=== PATIENT | female | born 1980 ===

== ENCOUNTER 2017-12-08 18:55 | Inpatient (IN) | payer OTHER ==
[2017-12-08 19:18] VITALS: BMI 19.7
[2017-12-08] MEDS ORDERED: Sodium Chloride 0.9% 1,000 ML IV STA ×2 (20:23→22:58)
[2017-12-08] MEDS ORDERED: Morphine 4 MG/ML VIAL ONE ×2 (20:26→21:58)
--- NOTE | 2017-12-08 21:20 | ED PDOC ---
HPI: Back Time Seen by Provider: 12/08/17 19:33 Chief Complaint (Nursing): Back Pain Chief Complaint (Provider): Back Pain History Per: Patient History/Exam Limitations: no limitations Onset/Duration Of Symptoms: Sudden Onset Current Symptoms Are (Timing): Still Present Quality Of Discomfort: "Pain" Exacerbating Factor(s): Movement Additional Complaint(s): 37 year old female presents to the emergency room complaining of a sudden onset of back pain. The patient states that the pain is sharp and began around 11am when she had an episode of vomiting. She reports that the pain radiates down her right buttock and into her right leg. Patient reports that she has not taken anything for relief of the pain. Denies numbness, weakness, bowel/bladder incontinence or retention. Patient further states that she is also experiencing some vaginal spotting which has been ongoing since she had a D&C performed back in October and she is currently being worked up by doctor Nick. she reports that her last evaluation was at [facility] and at that time she was told she may need to have a repeat D&C. Of note: Patient states that she vomited today is ongoing and has been intermittent since the procedure. PMD: Non [facility] Provider, Past Medical History Reviewed: Historical Data, Nursing Documentation, Vital Signs Vital Signs: Last Vital Signs Temp 98.3 F 12/08/17 19:16 Pulse 98 H 12/08/17 19:16 Resp 16 12/08/17 19:16 BP 121/81 12/08/17 19:16 Pulse Ox 100 12/08/17 19:16 - Medical History PMH: Anemia - Surgical History Surgical History: No Surg Hx - Family History Family History: States: Unknown Family Hx - Social History Current smoker - smoking cessation education provided: No Ex-Smoker (has not smoked in the last 12 months): No Alcohol: None Drugs: Denies - Immunization History Hx Tetanus Toxoid Vaccination: No Hx Influenza Vaccination: No Hx Pneumococcal Vaccination: No - Home Medications Home Medications: Ambulatory Orders Medication Instructions Recorded Levonorgestrel-Ethin Estradiol 1 each PO DAILY 12/03/17 [Vienva-28 Tablet] MedroxyPROGESTERone [Provera] 1 tab PO DAILY #10 tab 12/03/17 - Allergies Allergies/Adverse Reactions: Allergies Allergy/AdvReac Type Severity Reaction Status Date / Time iron AdvReac VOMITING Verified 09/02/17 15:59 Review of Systems Gastrointestinal: Positive for: Vomiting Genitourinary Female: Negative for: Incontinence, Vaginal Bleeding (vaginal spotting) Musculoskeletal: Positive for: Back Pain Neurological: Negative for: Weakness, Numbness Physical Exam - Reviewed Nursing Documentation Reviewed: Yes Vital Signs Reviewed: Yes - Physical Exam Appears: Positive for: Uncomfortable, In Acute Distress (moderate painful) Head Exam: Positive for: ATRAUMATIC, NORMOCEPHALIC Skin: Positive for: Warm, Dry Eye Exam: Positive for: EOMI, PERRL ENT: Positive for: Normal ENT Inspection Neck: Positive for: Painless ROM, Supple Cardiovascular/Chest: Positive for: Regular Rate, Rhythm. Negative for: Murmur Respiratory: Positive for: Normal Breath Sounds. Negative for: Respiratory Distress Gastrointestinal/Abdominal: Positive for: Soft. Negative for: Tenderness Back: Positive for: Other (tenderness to palpation right Para spinal lumbar area and right SI joint tenderness to palpation unable to tolerate straight leg testing). Negative for: L CVA Tenderness, R CVA Tenderness Extremity: Positive for: Normal ROM. Negative for: Deformity Neurologic/Psych: Positive for: Alert, Oriented, Other (no saddle anesthesia and 5/5 strength in b/l lower extremities.). Negative for: Motor/Sensory Deficits - Laboratory Results Result Diagrams: 12/08/17 22:16 12/08/17 22:16 - ECG O2 Sat by Pulse Oximetry: 100 (RA) Pulse Ox Interpretation: Normal Medical Decision Making Medical Decision Makin Initial Impression 37 y/o female presenting with acute lumbar radiculopathy Initial plan: * Flexeril 10mg PO * Morphine 2mg IVP * NS 1000mls IV 1000 mls/hr * Toradol 15mg * RAD LS Spine AP/LAT * Reevaluation 2300 Multiple reevaluations and doses of pain medication and patient has minimal improvement and inability to ambulate. [facility] Hospitalist for continued hospitalization for intractable low back pain. Labs c/w mild stable anemia. No emergently significant abnormalities LS spine xray negative for fx/dislocation ---- Documented by Jessie Perry acting as a scribe for Katherin Cortes MD. All medical record entries made by the Scribe were at my direction and personally dictated by me. I have reviewed the chart and agree that the record accurately reflects my personal performance of the history, physical exam, medical decision making, and the department course for this patient. I have also personally directed, reviewed, and agree with the discharge instructions and disposition. Disposition - Clinical Impression Clinical Impression: Low back pain, Intractable pain Counseled Patient/Family Regarding: Studies Performed, Diagnosis - Disposition Disposition Time: 23:00 Condition: FAIR - Pt Status Changed To: Hospital Disposition Of: Observation - POA Present On Arrival: None
[2017-12-08] MEDS ORDERED: Morphine 4 MG/ML VIAL IVP STA (21:56)
[2017-12-08 22:25] LABS: BASO % 0.5 % (0.0-2.0); EOS % 0.5 % (0.0-4.0); HEMOGLOBIN 9.4 g/dL (12.0-16.0); LYMPH # 1.9 K/uL (1.0-4.3); LYMPH % 31.6 % (20.0-40.0); MEAN CELL VOLUME 76.3 fl (81.0-99.0); MEAN CORPUSCULAR HEMOGLOBIN 23.7 pg (27.0-31.0); MEAN PLATELET VOLUME 10.9 fl (7.2-11.7); MONO # 0.6 K/uL (0.0-0.8); MONO % 9.6 % (0.0-10.0); NEUT # 3.5 K/uL (1.8-7.0); NEUT % 57.8 % (50.0-75.0); NRBC % 0.1 % (0.0-0.0); RBC 3.98 Mil/uL (3.80-5.20); RED CELL DISTRIBUTION WIDTH 15.2 % (11.5-14.5)
[2017-12-08 22:36] LABS: ALB/GLOB RATIO 1.1 (1.0-2.1); ALT/SGPT 31 U/L (9-52); AST/SGOT 23 U/L (14-36); BLOOD UREA NITROGEN 6 mg/dl (7-17); CALCIUM 9.2 mg/dL (8.4-10.2); GFR AFRICAN-AMERICAN > 60; GFR NON-AFRICAN AMERICAN > 60
[2017-12-08 22:55] LABS: INR 1.1 (0.9-1.2); PARTIAL THROMBOPLASTIN TIME 21.9 Seconds (25.6-37.1); PROTHROMBIN TIME 12.1 Seconds (9.8-13.1)
--- NOTE | 2017-12-08 23:43 | CP.PCM.HP ---
History of Present Illness - History of Present Illness History of Present Illness: CC: intractable back pain HPI: This is a 37 y/o female with MHx significant for recent ectopic surgery (Oct 2017) but otherwise no medical conditions who presents with acute onset back pain which is intractable and significant enough to impede her ability to ambulate. She states pain started acutely around 11 after an episode of vomiting (she has been having intermittent vomiting since procedure above). Pain radiates down right buttock. Denies any bowel/bladder incontinence or retention. She denies any other strain or trauma. Denies attempting to lift any heavy objects. States she is still having some vaginal spotting from her recent D&C. ROS: 14 systems reviewed, negative other than HPI MHx: Anemia SHx: D&C for ectopic surgery Allergies: Cannot tolerate Iron Medications: per med rec Family Hx: No relevant findings Social Hx: Lives with family, no tobacco, no EtOH Present on Admission - Present on Admission Any Indicators Present on Admission: No Past Patient History - Infectious Disease Hx of Infectious Diseases: None - Past Medical History & Family History Past Medical History?: Yes - Past Social History Alcohol: None Drugs: Denies - HEMATOLOGICAL/ONCOLOGICAL Hx Anemia: Yes - GASTROINTESTINAL Hx Gastrointestinal Disorders: Yes (hyperemesis no nausea vomitting x 2 days instructed to eat banana and juice) - GENITOURINARY/GYNECOLOGICAL Hx Genitourinary Disorders: Yes (hx ectopic ) Other/Comment: 11/25/16 ECTOPIC - PSYCHIATRIC Hx Substance Use: No - SURGICAL HISTORY Hx Surgeries: Yes Hx Dilation and Curettage: Yes Other/Comment: right salpingectomy due to ruptured ectopic - ANESTHESIA Hx Anesthesia: Yes Hx Anesthesia Reactions: No Hx Malignant Hyperthermia: No Meds Allergies/Adverse Reactions: Allergies Allergy/AdvReac Type Severity Reaction Status Date / Time iron AdvReac VOMITING Verified 09/02/17 15:59 Physical Exam - Constitutional Appears: No Acute Distress Additional comments: appears uncomfortable from back pain - Head Exam Head Exam: ATRAUMATIC, NORMOCEPHALIC - Eye Exam Eye Exam: EOMI, PERRL - ENT Exam ENT Exam: Mucous Membranes Moist - Neck Exam Neck exam: Positive for: Full Rom - Respiratory Exam Respiratory Exam: Clear to Auscultation Bilateral, NORMAL BREATHING PATTERN - Cardiovascular Exam Cardiovascular Exam: REGULAR RHYTHM, +S1, +S2 - GI/Abdominal Exam GI & Abdominal Exam: Normal Bowel Sounds, Soft - Extremities Exam Additional comments: b/l LE with restricted ROM due to pain; strength is intact and symmetric - Back Exam Back exam: paraspinal tenderness, vertebral tenderness - Neurological Exam Neurological exam: Alert, CN II-XII Intact, Oriented x3 - Psychiatric Exam Psychiatric exam: Normal Affect, Normal Mood - Skin Skin Exam: Dry, Warm Results - Vital Signs Recent Vital Signs: Last Vital Signs Temp 98.6 F 12/08/17 23:37 Pulse 80 12/08/17 23:37 Resp 16 12/08/17 23:37 BP 103/66 12/08/17 23:37 Pulse Ox 100 12/08/17 23:37 - Labs Result Diagrams: 12/08/17 22:16 12/08/17 22:16 Labs: Laboratory Results - last 24 hr 12/08/17 12/08/17 12/08/17 22:16 22:16 22:16 WBC 6.0 RBC 3.98 Hgb 9.4 L Hct 30.4 L MCV 76.3 L MCH 23.7 L MCHC 31.0 L RDW 15.2 H Plt Count 200 MPV 10.9 Neut % (Auto) 57.8 Lymph % (Auto) 31.6 Stevens % (Auto) 9.6 Eos % (Auto) 0.5 Baso % (Auto) 0.5 Neut # (Auto) 3.5 Lymph # (Auto) 1.9 Stevens # (Auto) 0.6 Eos # (Auto) 0.0 Baso # (Auto) 0.0 PT 12.1 INR 1.1 APTT 21.9 L Sodium 144 Potassium 3.6 Chloride 108 H Carbon Dioxide 22 Anion Gap 18 BUN 6 L Creatinine 0.6 L Est GFR ( Amer) > 60 Est GFR (Non-Af Amer) > 60 Random Glucose 72 Calcium 9.2 Total Bilirubin 0.8 AST 23 ALT 31 Alkaline Phosphatase 58 Total Protein 7.5 Albumin 4.0 Globulin 3.5 Albumin/Globulin Ratio 1.1 Blood Type Antibody Screen BBK History Checked 12/08/17 22:16 WBC RBC Hgb Hct MCV MCH MCHC RDW Plt Count MPV Neut % (Auto) Lymph % (Auto) Stevens % (Auto) Eos % (Auto) Baso % (Auto) Neut # (Auto) Lymph # (Auto) Stevens # (Auto) Eos # (Auto) Baso # (Auto) PT INR APTT Sodium Potassium Chloride Carbon Dioxide Anion Gap BUN Creatinine Est GFR ( Amer) Est GFR (Non-Af Amer) Random Glucose Calcium Total Bilirubin AST ALT Alkaline Phosphatase Total Protein Albumin Globulin Albumin/Globulin Ratio Blood Type A POSITIVE Antibody Screen Negative BBK History Checked Patient has bt - Imaging and Cardiology Abdominal x-ray Status: Image reviewed by me (L spine film with no acute abnormalities noted) Assessment & Plan (1) Back pain Assessment and Plan: 37 y/o patient with no chronic medical problems aside from recent ectopic surgery who comes in with LBP with sciatica-like symptoms. -obs -Pain control with percocet, morphine IV, and flexeril -Re-assess in AM, if not improved, further workup -SCDs for DVT PPx given continued spotting from recent procedure Status: Acute (2) Gait abnormality Status: Acute (3) DVT prophylaxis Status: Acute
[2017-12-09] MEDS: Oxycodone/Acetaminophen 5/325 mg Tab PO PRN ×2 (00:42→07:27)
--- NOTE | 2017-12-09 08:13 | RAD ---
PROCEDURE: Radiographs of the Lumbar Spine. HISTORY: Acute low back pain COMPARISON: No prior. FINDINGS: BONES: Normal alignment. No listhesis. No fracture. DISC SPACES: Unremarkable. OTHER FINDINGS: None. IMPRESSION: Unremarkable radiographs of the lumbar spine.
[2017-12-09] MEDS ORDERED: LEVONORGESTREL ETHIN ESTRADIOL PO SCH (09:00)
--- NOTE | 2017-12-09 09:24 | CP.PCM.PN ---
Subjective - Date & Time of Evaluation Date of Evaluation: 12/09/17 Time of Evaluation: 09:24 - Subjective Subjective: pain is mildly improved, however continues to have pain radiating up appx 8 inches superiorly midline tenderness on exam, CT L spine for today unable to ambulate, requires assistance turning in bed. hd stable nad Objective - Vital Signs/Intake and Output Vital Signs (last 24 hours): Temp Pulse Resp BP Pulse Ox 98.5 F 72 20 95/54 L 100 12/09/17 08:03 12/09/17 08:03 12/09/17 08:03 12/09/17 08:03 12/09/17 08:03 Vitals Reviewed GEN: WDWN, alert, cooperative HEENT: NCAT, PERRL, EOMI HEART: RRR, +S1S2, NO MRG LUNG: CTAB, NO WRR ABD: soft, NT, ND, No HSM, No masses EXT: normal pedal pulses, normal capillary refill BACK: midline tenderness L4/L5 at level of superior iliacs, no sacral tenderness NEURO: awake, alert, no focal deficits, unable to ambulate, requires assistance turning in bed. SKIN: warm, dry PSYCH: normal mood, normal affect - Medications Medications: Current Medications Acetaminophen (Tylenol 325mg Tab) 975 mg PO Q6 PRN PRN Reason: Pain, Mild (1-3) Cyclobenzaprine HCl (Flexeril) 5 mg PO TID PRN PRN Reason: Muscle spasm Home Med (Levonorgestrel-Ethin Estradiol [Vienva-28 Tablet]) 1 each PO DAILY [facility] Home Med (Medroxyprogesterone [Provera]) 1 tab PO DAILY [facility] Ketorolac Tromethamine (Toradol) 30 mg IVP Q6 PRN PRN Reason: Pain, severe (8-10) Ketorolac Tromethamine (Toradol) 15 mg IVP Q6 PRN PRN Reason: Pain, moderate (4-7) Morphine Sulfate (Morphine) 1 mg IVP Q4 PRN PRN Reason: Pain, moderate (4-7) Morphine Sulfate (Morphine) 2 mg IVP Q4 PRN PRN Reason: Pain, severe (8-10) Oxycodone/Acetaminophen (Percocet 5/325 Mg Tab) 1 tab PO Q4 PRN PRN Reason: Pain, Mild (1-3) Stop: 12/11/17 23:37 Last Admin: 12/09/17 07:27 Dose: 1 tab - Labs Labs: 12/08/17 22:16 12/08/17 22:16 PT 12.1 Seconds (9.8-13.1) 12/08/17 22:16 INR 1.1 (0.9-1.2) 12/08/17 22:16 APTT 21.9 Seconds (25.6-37.1) L 12/08/17 22:16 Assessment and Plan - Assessment and Plan (Free Text) Plan: 37 y/o female with MHx significant for recent ectopic surgery (Oct 2017) but otherwise no medical conditions who presents with acute onset back pain which is intractable and significant enough to impede her ability to ambulate. She states pain started acutely around 11 after an episode of vomiting (she has been having intermittent vomiting since procedure above). Pain radiates down right buttock. Denies any bowel/bladder incontinence or retention. She denies any other strain or trauma. Denies attempting to lift any heavy objects. States she is still having some vaginal spotting from her recent D&C. Back pain 2/2 degenerative spondylosis and small parasagittal disc herniation L4/L5 - acute back pain after episode of emesis when she bent over to reach toilet bowl, needed help walking out of bathroom - patient unable to ambulate, and requires assistance turning in bed - midline tenderness - pain control with Toradol, flexeril - Physical Therapy eval and tx tomorrow holding lovenox due to bleeding post d&c SCDs
[2017-12-09] MEDS ORDERED: Influenza Vaccine 18yr & older 0.5 ML/45 MCG SYR IM ONE (11:00)
--- NOTE | 2017-12-09 11:20 | CT ---
PROCEDURE: CT scan lumbar spine dated 12/09/2017 HISTORY: Questionable herniated disc COMPARISON: Comparison made with plain film radiographs of the lumbar spine 12/08/2017 the the the the the. TECHNIQUE: Axial computed tomography images were obtained of the lumbar spine without the use of intravenous contrast. Coronal and sagittal reformatted images were created and reviewed. Radiation dose: Total exam DLP = 519.67 mGy-cm. This CT exam was performed using one or more of the following dose reduction techniques: Automated exposure control, adjustment of the mA and/or kV according to patient size, and/or use of iterative reconstruction technique. FINDINGS: VERTEBRAE: No acute compression fractures no retropulsed fragments. Vertebral bodies exhibit normal stature. Vertebral bodies and facets normally aligned. DISCS/SPINAL CANAL/NEURAL FORAMINA: L1-2: Minor disc space narrowing along the posterior disc margin. No disc herniation or significant disc bulge. Central canal and exit foramina adequate. L2-3: . There is some minor posterior disc space narrowing with minimal broad-based bulge of the posterior annulus that results in some flattening of the ventral surface of thecal sacs slightly more so on the left side with some extension into the proximal inferior margins of both exit foramina again more so on the left. Overall central canal and exit foramina appear adequate. L3-4: Minor posterior disc space narrowing. Small broad-based bulge of the posterior annulus slightly larger on the left and the right with some minimal flattening of the ventral surface of the thecal sac. . There is some minimal extension of disc bulging into the proximal inferior margins of both exit foramina more so on the left side Central canal and exit foramina adequate. L4-5: There is a minor of broad-based bulge with a localized left parasagittal and slightly central disc herniation component along the inferior margin of the disc that does compress the ventral surface of the thecal sac more so on the left side than the right. There is also left lateral recess stenosis. The overall central canal measured at midline does appear marginal to minimally narrowed. Disc bulging extends slightly into the proximal inferior margins of both exit foramina however the exit foramina are adequate. Facets are mildly prominent. L5-S1: Minor posterior disc space narrowing L5-S1 level. No disc herniation or significant disc bulge. Central canal and exit foramina adequate. . PARASPINAL SOFT TISSUES: Unremarkable. OTHER FINDINGS: None. IMPRESSION: Minor multilevel degenerative spondylosis most notably affecting the L4-L5 level where there is a small left parasagittal disc herniation that results in mild compressive effects on the ventral surface of the thecal sac centrally and to the left with mild left lateral recess stenosis. See above discussion for additional details and findings.
[2017-12-09] MEDS: MEDROXYPROGESTERONE PO SCH (18:44)
[2017-12-09] MEDS: LEVONORGESTREL ETHIN ESTRADIOL PO SCH (18:44)
[2017-12-10] MEDS ORDERED: Oxycodone/Acetaminophen 5/325 mg Tab PO ONE (10:49)
[2017-12-10] MEDS ORDERED: HYDROmorphone 0.5 mg/0.5 ml ISec IVP ONE (12:26)
[2017-12-10] MEDS ORDERED: Morphine 4 MG/ML VIAL IVP ONE (13:30)
[2017-12-10] MEDS ORDERED: Magnesium Hydroxide Susp 30 ml UD PO PRN (16:18)
--- NOTE | 2017-12-10 19:01 | CP.PCM.PN ---
Subjective - Date & Time of Evaluation Date of Evaluation: 12/10/17 Time of Evaluation: 12:00 - Subjective Subjective: Patient was seen and examined at bedside. She states that her pain has worsened overnight and she is not feeling any better despite pain medication. She notes that the pain is spreading up her right shoulder and down into her right hip. Was unable to bear weight on the left leg due to the pain. Denies any chest pain , sob, weakness, nauesea, vomiting. Is complaining of constipation. Objective - Vital Signs/Intake and Output Vital Signs (last 24 hours): Temp Pulse Resp BP Pulse Ox 98.3 F 88 20 109/66 100 12/10/17 15:59 12/10/17 15:59 12/10/17 15:59 12/10/17 15:59 12/10/17 15:59 - Medications Medications: Current Medications Acetaminophen (Tylenol 325mg Tab) 975 mg PO Q6 PRN PRN Reason: Pain, Mild (1-3) Last Admin: 12/09/17 19:51 Dose: 975 mg Cyclobenzaprine HCl (Flexeril) 10 mg PO TID [facility] Last Admin: 12/10/17 17:24 Dose: Not Given Dexamethasone (Decadron Inj) 10 mg IV Q12H [facility] Diazepam (Valium) 10 mg PO TID PRN PRN Reason: Anxiety Docusate Sodium (Colace) 100 mg PO BID [facility] Gabapentin (Neurontin) 100 mg PO TID [facility] Last Admin: 12/10/17 16:44 Dose: 100 mg Home Med (Medroxyprogesterone [Provera]) 1 tab PO DAILY@1900 [facility] Last Admin: 12/09/17 18:44 Dose: 1 tab Home Med (Levonorgestrel-Ethin Estradiol [Vienva-28 Tablet]) 1 each PO DAILY@ 1900 [facility] Last Admin: 12/09/17 18:44 Dose: 1 each Ketorolac Tromethamine (Toradol) 30 mg IVP Q6 PRN PRN Reason: Pain, severe (8-10) Last Admin: 12/10/17 15:22 Dose: 30 mg Ketorolac Tromethamine (Toradol) 15 mg IVP Q6 PRN PRN Reason: Pain, moderate (4-7) Last Admin: 12/09/17 21:21 Dose: 15 mg Magnesium Hydroxide (Milk Of Magnesia) 30 ml PO DAILY PRN PRN Reason: Constipation Last Admin: 12/10/17 16:45 Dose: 30 ml Morphine Sulfate (Morphine) 4 mg IVP Q6 PRN PRN Reason: Pain, severe (8-10) Oxycodone/Acetaminophen (Percocet 5/325 Mg Tab) 1 tab PO Q4 PRN PRN Reason: Pain, Mild (1-3) Stop: 12/11/17 23:37 Last Admin: 12/09/17 07:27 Dose: 1 tab - Labs Labs: 12/08/17 22:16 12/08/17 22:16 PT 12.1 Seconds (9.8-13.1) 12/08/17 22:16 INR 1.1 (0.9-1.2) 12/08/17 22:16 APTT 21.9 Seconds (25.6-37.1) L 12/08/17 22:16 - Additional Findings Additional findings: Physical exam: Constitutional- cooperative, awake, alert Head- NCAT, PERRL Eye- PERRL, EOMI ENT- normal exam, MMM. Neck- normal inspection, supple, no JVD Respiratory- CTAB, no wheezes rales rhonchi Cardiovascular- RRR, +S1, +S2 no MRG GI/Abdominal- normal bowel sounds, soft, no mass, no hsm Skin- warm, dry Back: paraspinal tenderness L4/L5 and pain posterior superior iliac spinal processes bilaterally. Extremities Exam- normal capillary refill, normal inspection Neurological Exam- alert, awake, oriented Psych- normal mood, normal affect Assessment and Plan - Assessment and Plan (Free Text) Plan: 37 y/o female with MHx significant for recent ectopic surgery (Oct 2017) but otherwise no medical conditions who presents with acute onset back pain which is intractable and significant enough to impede her ability to ambulate. She states pain started acutely around 11 after an episode of vomiting (she has been having intermittent vomiting since procedure above). Pain radiates down right buttock. Denies any bowel/bladder incontinence or retention. She denies any other strain or trauma. Denies attempting to lift any heavy objects. States she is still having some vaginal spotting from her recent D&C. Back pain 2/2 degenerative spondylosis and small parasagittal disc herniation L4/L5 - acute back pain after episode of emesis when she bent over to reach toilet bowl, needed help walking out of bathroom - patient continues to be unable to ambulate, and requires assistance turning in bed - midline and paraspinal lumbar tenderness - pain control with Toradol, flexeril - Morphine for severe pain, Percocet for mild pain - Gabapentin 100 mg po TID - Unable to bear weight on left leg with physical therapy - Valium 10 mg po TID PRN - Started Dexamethasone 10 mg IVPB to reduce inflammation - Continue physical therapy Constipation - Secondary to opiates - Colace 100 mg po BID - Milk of Magnesia PRN DVT prophylaxis SCDs holding lovenox due to bleeding post d&c
[2017-12-10] MEDS: MEDROXYPROGESTERONE PO SCH (19:02)
[2017-12-10] MEDS: LEVONORGESTREL ETHIN ESTRADIOL PO SCH (19:02)
[2017-12-10] MEDS ORDERED: Dexamethasone 10 MG in Sodium Chloride 0.9% 50 ML IVPB SCH (21:00)
[2017-12-11 08:01] VITALS: RESP 18
[2017-12-11] MEDS: Oxycodone/Acetaminophen 5/325 mg Tab PO PRN ×2 (11:14)
--- NOTE | 2017-12-11 15:28 | CP.PCM.CON ---
History of Present Illness - History of Present Illness History of Present Illness: 37yF with hx of D and C, ectopic complaining of whole body pain since Sunday. Her back pain started this past Sunday when she went to the bathroom. Pain is on the right side of her back and is VAS 5-6/10, crampy intermittent pain. Her back pain is associated with headaches, jaw pain and pain in her arms. There are no specific relieving factors, but walking exacerbates her pain. Patient notes that her hands and arms have begun to have pain too, with VAS 5/10 dull pain a/w mild weakness. She associates inciting event of her body pain with recent Dilation and curettage. She says PT and current pharmacotherapy have given her mild relief of pain. Past Patient History - Infectious Disease Hx of Infectious Diseases: None - Past Medical History & Family History Past Medical History?: Yes - Past Social History Alcohol: None Drugs: Denies - CARDIAC Hx Cardiac Disorders: No - PULMONARY Hx Respiratory Disorders: No - NEUROLOGICAL Hx Neurological Disorder: No - HEENT Hx HEENT Problems: No - ENDOCRINE/METABOLIC Hx Endocrine Disorders: No - HEMATOLOGICAL/ONCOLOGICAL Hx Anemia: Yes - INTEGUMENTARY Hx Dermatological Problems: No - MUSCULOSKELETAL/RHEUMATOLOGICAL Hx Musculoskeletal Disorders: No Hx Falls: No - GASTROINTESTINAL Hx Gastrointestinal Disorders: Yes (hyperemesis no nausea vomitting x 2 days instructed to eat banana and juice) - GENITOURINARY/GYNECOLOGICAL Hx Genitourinary Disorders: Yes (hx ectopic ) Other/Comment: 11/25/16 ECTOPIC - PSYCHIATRIC Hx Psychophysiologic Disorder: No Hx Substance Use: No - SURGICAL HISTORY Hx Surgeries: Yes Hx Dilation and Curettage: Yes Other/Comment: right salpingectomy due to ruptured ectopic - ANESTHESIA Hx Anesthesia: Yes Hx Anesthesia Reactions: No Hx Malignant Hyperthermia: No Meds Home Medications: Home Medication List Medication Instructions Recorded Confirmed Type Acetaminophen [Tylenol 325mg tab] 975 mg PO Q6 PRN tab 12/10/17 Rx Cyclobenzaprine [Flexeril] 5 mg PO TID PRN #20 tab 12/10/17 Rx Dexamethasone [Decadron] 1 mg PO Q12 #8 tab 12/10/17 Rx Gabapentin [Neurontin] 100 mg PO TID #24 cap 12/10/17 Rx oxyCODONE/Acetaminophen [Percocet 1 tab PO Q4 PRN #20 tab 12/10/17 Rx 5/325 mg Tab] Docusate Sodium [Colace] 100 mg PO BID PRN #30 capsule 12/11/17 Rx Ketorolac Tromethamine [Toradol] 10 mg PO Q6H PRN #30 tab 12/11/17 Rx Allergies/Adverse Reactions: Allergies Allergy/AdvReac Type Severity Reaction Status Date / Time iron AdvReac VOMITING Verified 09/02/17 15:59 - Medications Medications: Current Medications Acetaminophen (Tylenol 325mg Tab) 975 mg PO Q6 PRN PRN Reason: Pain, Mild (1-3) Last Admin: 12/11/17 05:00 Dose: 975 mg Cyclobenzaprine HCl (Flexeril) 10 mg PO TID [facility] Last Admin: 12/11/17 13:11 Dose: 10 mg Diazepam (Valium) 10 mg PO TID PRN PRN Reason: Anxiety Docusate Sodium (Colace) 100 mg PO BID [facility] Last Admin: 12/11/17 09:21 Dose: 100 mg Gabapentin (Neurontin) 100 mg PO TID [facility] Last Admin: 12/11/17 13:11 Dose: 100 mg Home Med (Medroxyprogesterone [Provera]) 1 tab PO DAILY@1900 [facility] Last Admin: 12/10/17 19:02 Dose: 1 tab Home Med (Levonorgestrel-Ethin Estradiol [Vienva-28 Tablet]) 1 each PO DAILY@ 1900 [facility] Last Admin: 12/10/17 19:02 Dose: 1 each Ketorolac Tromethamine (Toradol) 30 mg IVP Q6 PRN PRN Reason: Pain, severe (8-10) Last Admin: 12/11/17 13:08 Dose: 30 mg Ketorolac Tromethamine (Toradol) 15 mg IVP Q6 PRN PRN Reason: Pain, moderate (4-7) Last Admin: 12/11/17 07:39 Dose: 15 mg Magnesium Hydroxide (Milk Of Magnesia) 30 ml PO DAILY PRN PRN Reason: Constipation Last Admin: 12/10/17 16:45 Dose: 30 ml Morphine Sulfate (Morphine) 4 mg IVP Q6 PRN PRN Reason: Pain, severe (8-10) Oxycodone/Acetaminophen (Percocet 5/325 Mg Tab) 1 tab PO Q4 PRN PRN Reason: Pain, Mild (1-3) Stop: 12/11/17 23:37 Last Admin: 12/11/17 11:14 Dose: 1 tab Physical Exam - Extremities Exam Additional comments: Handgrip 5/5 bilaterally, sensation intact - Back Exam Additional comments: limited ROM, mild lumbar pvb tenderness negative SLR negative KAMALJIT DP flex 5/5 bilateral LE sensation intact - Neurological Exam Neurological exam: Alert, CN II-XII Intact Results - Vital Signs Recent Vital Signs: Last Vital Signs Temp 98.3 F 12/11/17 08:00 Pulse 80 12/11/17 08:00 Resp 18 12/11/17 08:00 BP 89/53 L 12/11/17 08:00 Pulse Ox 100 12/11/17 08:00 - Labs Result Diagrams: 12/08/17 22:16 12/08/17 22:16 Assessment & Plan - Assessment and Plan (Free Text) Assessment: 37yF with whole body pain starting 12/08/17 Plan: 1. PT, MRI Lspine 2. Lidoderm patch 3. percocet 5/325 1 tab po q6h prn moderate pain 4. Psychiatry consult for anxiety and depression 5. Neurology consult 6. Care as per primary team
--- NOTE | 2017-12-11 15:50 | CP.PCM.DIS ---
Provider - Provider Date of Admission: 12/09/17 10:41 Attending physician: Babar Baez MD Primary care physician: none Consults: Dr. Orlando Arrington Time Spent in preparation of Discharge (in minutes): 25 Hospital Course - Lab Results Lab Results: Most Recent Lab Values WBC 6.0 K/uL (4.8-10.8) 12/08/17 22:16 RBC 3.98 Mil/uL (3.80-5.20) 12/08/17 22:16 Hgb 9.4 g/dL (12.0-16.0) L 12/08/17 22:16 Hct 30.4 % (34.0-47.0) L 12/08/17 22:16 MCV 76.3 fl (81.0-99.0) L 12/08/17 22:16 MCH 23.7 pg (27.0-31.0) L 12/08/17 22:16 MCHC 31.0 g/dL (33.0-37.0) L 12/08/17 22:16 RDW 15.2 % (11.5-14.5) H 12/08/17 22:16 Plt Count 200 K/uL (130-400) 12/08/17 22:16 MPV 10.9 fl (7.2-11.7) 12/08/17 22:16 Neut % (Auto) 57.8 % (50.0-75.0) 12/08/17 22:16 Lymph % (Auto) 31.6 % (20.0-40.0) 12/08/17 22:16 [place] % (Auto) 9.6 % (0.0-10.0) 12/08/17 22:16 Eos % (Auto) 0.5 % (0.0-4.0) 12/08/17 22:16 Baso % (Auto) 0.5 % (0.0-2.0) 12/08/17 22:16 Neut # (Auto) 3.5 K/uL (1.8-7.0) 12/08/17 22:16 Lymph # (Auto) 1.9 K/uL (1.0-4.3) 12/08/17 22:16 [place] # (Auto) 0.6 K/uL (0.0-0.8) 12/08/17 22:16 Eos # (Auto) 0.0 K/uL (0.0-0.7) 12/08/17 22:16 Baso # (Auto) 0.0 K/uL (0.0-0.2) 12/08/17 22:16 PT 12.1 Seconds (9.8-13.1) 12/08/17 22:16 INR 1.1 (0.9-1.2) 12/08/17 22:16 APTT 21.9 Seconds (25.6-37.1) L 12/08/17 22:16 Sodium 144 mmol/l (132-148) 12/08/17 22:16 Potassium 3.6 MMOL/L (3.6-5.0) 12/08/17 22:16 Chloride 108 mmol/L (98-107) H 12/08/17 22:16 Carbon Dioxide 22 mmol/L (22-30) 12/08/17 22:16 Anion Gap 18 (10-20) 12/08/17 22:16 BUN 6 mg/dl (7-17) L 12/08/17 22:16 Creatinine 0.6 mg/dl (0.7-1.2) L 12/08/17 22:16 Est GFR ( Amer) > 60 12/08/17 22:16 Est GFR (Non-Af Amer) > 60 12/08/17 22:16 Random Glucose 72 mg/dL (65-105) 12/08/17 22:16 Calcium 9.2 mg/dL (8.4-10.2) 12/08/17 22:16 Total Bilirubin 0.8 mg/dl (0.2-1.3) 12/08/17 22:16 AST 23 U/L (14-36) 12/08/17 22:16 ALT 31 U/L (9-52) 12/08/17 22:16 Alkaline Phosphatase 58 U/L (38-126) 12/08/17 22:16 Total Protein 7.5 G/DL (6.3-8.2) 12/08/17 22:16 Albumin 4.0 g/dL (3.5-5.0) 12/08/17 22:16 Globulin 3.5 gm/dL (2.2-3.9) 12/08/17 22:16 Albumin/Globulin Ratio 1.1 (1.0-2.1) 12/08/17 22:16 Blood Type A POSITIVE 12/08/17 22:16 Antibody Screen Negative 12/08/17 22:16 BBK History Checked Patient has bt 12/08/17 22:16 - Hospital Course Hospital Course: This is a 37 year old female with past medical history significant for ectopic surgery in 10/2017, denies any other medical problems, who presented to the ED with acute onset back pain after an episode of vomiting and musculoskeletal strain. She stated that the pain radiated down her right buttock. There were no alarm signs. The patient was subsequently admitted to the hospital for pain control. CT lumbar spine was performed and showed a small left parasagital disc herniation that results in mild compressive effects on the ventral surgace of the thecal sac centrally and to the left with mild left lateral recess stenosis. The patient's pain was not controlled and stated she could not ambulate. However with physical therapy yesterday she was able to ambulate as per note. Today her pain is somewhat improved although she has multiple complaints of pain. Dr. Lopez, anesthesia, saw her for pain management consultation and feels that her pain is more related to somatoform disorder and anxiety which is exacerbating her physical pain. The patient is to be discharged to home and is to follow up with pain management of her choice and would also benefit from psychiatrist outpatient as she has also been through truamatic event recently (ectopic with D&C). Patient is neurologically intact and stable for discharge to home. Patient may also have MRI as outpatient as recommended by Dr. Lopez. 37 y/o female with MHx significant for recent ectopic surgery (Oct 2017) but otherwise no medical conditions who presents with acute onset back pain which is intractable and significant enough to impede her ability to ambulate. She states pain started acutely around 11 after an episode of vomiting (she has been having intermittent vomiting since procedure above). Pain radiates down right buttock. Denies any bowel/bladder incontinence or retention. She denies any other strain or trauma. Denies attempting to lift any heavy objects. States she is still having some vaginal spotting from her recent D&C. Back pain 2/2 degenerative spondylosis and small parasagittal disc herniation L4/L5 - acute back pain after episode of emesis when she bent over to reach toilet bowl, pain somewhat improved, with likely somatoform component - patient able to ambulate today - midline and paraspinal lumbar tenderness - Seen by anesthesiologist Dr. Lopez for pain management- patiene is neurologically intact - Lidocaine patch outpatient - Gabapentin 100 mg po TID - Physical therapy outpatient - Toradol 10 mg po q 6 hours PRN - Flexeril 10 mg po q 8 hours PRN for muscle spasm - Percocet for severe pain - Patient being discharged today to home in stable condition - Refer for psych eval Constipation - Secondary to opiates - Colace 100 mg po BID prescribed at home DVT prophylaxis SCDs given while in house holding lovenox due to bleeding post d&c Discharge Exam - Head Exam Head Exam: ATRAUMATIC, NORMOCEPHALIC - Additional Findings Additional findings: Physical exam: Constitutional- cooperative, awake, alert Head- NCAT, PERRL Eye- PERRL, EOMI ENT- normal exam, MMM. Neck- normal inspection, supple, no JVD Respiratory- CTAB, no wheezes rales rhonchi Cardiovascular- RRR, +S1, +S2 no MRG GI/Abdominal- normal bowel sounds, soft, no mass, no hsm Skin- warm, dry Extremities Exam- normal capillary refill, normal inspection Neurological Exam- alert, awake, oriented Psych- depressed mood, flat affect Discharge Plan - Discharge Medications Prescriptions: Cyclobenzaprine [Flexeril] 5 mg PO TID PRN #20 tab PRN Reason: Muscle Spasm Dexamethasone [Decadron] 1 mg PO Q12 #8 tab Docusate Sodium [Colace] 100 mg PO BID PRN #30 capsule PRN Reason: Constipation Gabapentin [Neurontin] 100 mg PO TID #24 cap Ketorolac Tromethamine [Toradol] 10 mg PO Q6H PRN #30 tab PRN Reason: Pain, Moderate (4-7) Lidocaine [Aspercreme] 1 each TP DAILY PRN #20 adh..patch PRN Reason: Back Pain oxyCODONE/Acetaminophen [Percocet 5/325 mg Tab] 1 tab PO Q4 PRN #20 tab PRN Reason: Pain, Mild (1-3) - Follow Up Plan Condition: FAIR Disposition: HOME/ ROUTINE Instructions: Low Back Pain (DC), Back Precautions, Back Pain (GEN), Weakness (GEN) Additional Instructions: follow up with your primary MD 1 week. Referrals: [facility] [place] [Outside] Jessica Munguia MD [Staff Provider] - Netta Sanchez MD [Staff Provider] -
[2017-12-11 16:06] VITALS: BP 99/60; PULSE 90; TEMP 98.2; O2SAT 99
== END 2017-12-11 19:40 | disposition home or self-care (01) | DRG 243 ==
LOC: H.ER 18:55 → H.ERHOLD 22:57 → H.MEDSURG1 12-09 00:35 → OBSVTOIN 12-09 10:41
PROVIDERS: ADMIT Internal Medicine; ATTEND Internal Medicine
PROC: 3E0234Z Introduction of Serum, Toxoid and Vaccine into Muscle, Percutaneous Approach (ICD-10-PCS; principal; 2017-12-09)
DX: M47.9 Spondylosis, unspecified (principal); F41.9 Anxiety disorder, unspecified; F45.41 Pain disorder exclusively related to psychological factors; M51.16 Intervertebral disc disorders with radiculopathy, lumbar region; Z23 Encounter for immunization; K59.03 Drug induced constipation; T40.605A Adverse effect of unspecified narcotics, initial encounter

== ENCOUNTER 2017-12-17 15:14 | Emergency (ER) | payer OTHER ==
[2017-12-17 15:15] VITALS: BMI 19.7
[2017-12-17 15:33] VITALS: RESP 18
[2017-12-17] MEDS ORDERED: Sodium Chloride 0.9% 1,000 ML IV STA (16:09)
--- NOTE | 2017-12-17 16:12 | ED PDOC ---
HPI: Female Pain Time Seen by Provider: 12/17/17 15:57 Chief Complaint (Nursing): Female Genitourinary Chief Complaint (Provider): vaginal bleeding History Per: Patient, Family () Additional Complaint(s): 37-year-old female presents to emergency department for evaluation of vaginal bleeding. Patient is status post D&C on November 05 of this year and states she has had bleeding since then. She was seen 2 weeks ago at [facility] and was started on Vienva and Provera for the bleeding but she presents today with cramping pain and persistent bleeding. She denies any dysuria. She denies any dizziness or lightheadedness. No fever or chills. Patient has an appointment with her review appraiser this . BAKERY CLERK: Dr. Gunter Past Medical History Reviewed: Historical Data, Nursing Documentation, Vital Signs Vital Signs: Last Vital Signs Temp 98.2 F 12/17/17 15:27 Pulse 116 H 12/17/17 15:27 Resp 18 12/17/17 15:27 BP 124/72 12/17/17 15:27 Pulse Ox 99 12/17/17 15:27 - Medical History PMH: Anemia - Surgical History Surgical History: No Surg Hx - Family History Family History: States: No Known Family Hx - Living Arrangements Living Arrangements: With Family - Social History Current smoker - smoking cessation education provided: No Alcohol: None Drugs: Denies - Immunization History Hx Pneumococcal Vaccination: No - Home Medications Home Medications: Ambulatory Orders Medication Instructions Recorded Levonorgestrel-Ethin Estradiol 1 each PO DAILY 12/03/17 [Vienva-28 Tablet] MedroxyPROGESTERone [Provera] 1 tab PO DAILY #10 tab 12/03/17 Acetaminophen [Tylenol 325mg tab] 975 mg PO Q6 PRN tab 12/10/17 Cyclobenzaprine [Flexeril] 5 mg PO TID PRN #20 tab 12/10/17 Dexamethasone [Decadron] 1 mg PO Q12 #8 tab 12/10/17 Gabapentin [Neurontin] 100 mg PO TID #24 cap 12/10/17 oxyCODONE/Acetaminophen [Percocet 1 tab PO Q4 PRN #20 tab 12/10/17 5/325 mg Tab] Docusate Sodium [Colace] 100 mg PO BID PRN #30 capsule 12/11/17 Ketorolac Tromethamine [Toradol] 10 mg PO Q6H PRN #30 tab 12/11/17 Lidocaine [Aspercreme] 1 each TP DAILY PRN #20 adh..patch 12/11/17 - Allergies Allergies/Adverse Reactions: Allergies Allergy/AdvReac Type Severity Reaction Status Date / Time iron AdvReac VOMITING Verified 09/02/17 15:59 Review of Systems ROS Statement: Except As Marked, All Systems Reviewed And Found Negative Constitutional: Negative for: Fever, Chills Cardiovascular: Negative for: Chest Pain, Palpitations Respiratory: Negative for: Cough Gastrointestinal: Negative for: Nausea, Vomiting Genitourinary Female: Positive for: Vaginal Bleeding, Pelvic Pain. Negative for : Dysuria, Frequency, Incontinence, Hematuria, Vaginal Discharge Physical Exam - Reviewed Nursing Documentation Reviewed: Yes Vital Signs Reviewed: Yes - Physical Exam Appears: Positive for: Well, Non-toxic, No Acute Distress Head Exam: Positive for: ATRAUMATIC Skin: Positive for: Normal Color. Negative for: Rash Eye Exam: Positive for: Normal appearance Cardiovascular/Chest: Positive for: Regular Rate, Rhythm Respiratory: Positive for: Normal Breath Sounds Gastrointestinal/Abdominal: Positive for: Soft. Negative for: Tenderness - Laboratory Results Result Diagrams: 12/17/17 17:05 12/17/17 17:05 Urine POC: Negative Urine dip results: Positive for: Blood (moderate). Negative for: Leukocyte Esterase, Nitrate, Ketones, Glucose, Bilirubin, Protein - ECG O2 Sat by Pulse Oximetry: 99 Pulse Ox Interpretation: Normal Medical Decision Making Medical Decision Makin37 year old with vaginal bleeding Plan: Urine dip Urine test CBC CMP PT/PTT IVF Patient aware of all diagnostic testing results, all questions answered. Repeat vitals are stable. Patient has follow-up on with her review appraiser, she was advised to keep the appointment. Disposition - Clinical Impression Clinical Impression: Vaginal bleeding - Patient ED Disposition Is Patient to be Admitted: No Counseled Patient/Family Regarding: Studies Performed, Diagnosis, Need For Followup - Disposition Referrals: Netta Sanchez MD [Staff Provider] - Disposition: Routine/Home Disposition Time: 17:50 Condition: STABLE Additional Instructions: Follow-up as scheduled with your review appraiser this coming . Instructions: Dysfunctional Uterine Bleeding (ED) Forms: [employer] (Martiniquais) Results - Lab Results Lab Results: 12/17/17 12/17/17 12/17/17 17:05 17:05 17:05 WBC 6.2 RBC 4.22 Hgb 9.8 L Hct 32.0 L MCV 75.9 L MCH 23.3 L MCHC 30.7 L RDW 15.4 H Plt Count 202 MPV 10.5 Neut % (Auto) 65.7 Lymph % (Auto) 23.6 [place] % (Auto) 8.6 Eos % (Auto) 1.6 Baso % (Auto) 0.5 Neut # (Auto) 4.0 Lymph # (Auto) 1.5 [place] # (Auto) 0.5 Eos # (Auto) 0.1 Baso # (Auto) 0.0 PT 10.8 INR 1.0 APTT 24.7 L Sodium 140 Potassium 4.3 Chloride 103 Carbon Dioxide 23 Anion Gap 18 BUN 13 Creatinine 0.6 L Est GFR ( Amer) > 60 Est GFR (Non-Af Amer) > 60 Random Glucose 104 Calcium 8.9 Total Bilirubin 0.3 AST 26 ALT 40 Alkaline Phosphatase 43 Total Protein 7.8 Albumin 4.1 Globulin 3.7 Albumin/Globulin Ratio 1.1
[2017-12-17 17:37] LABS: BASO % 0.5 % (0.0-2.0); EOS # 0.1 K/uL (0.0-0.7); EOS % 1.6 % (0.0-4.0); HEMOGLOBIN 9.8 g/dL (12.0-16.0); LYMPH # 1.5 K/uL (1.0-4.3); LYMPH % 23.6 % (20.0-40.0); MEAN CELL VOLUME 75.9 fl (81.0-99.0); MEAN CORPUSCULAR HEMOGLOBIN 23.3 pg (27.0-31.0); MEAN CORPUSCULAR HGB CONC 30.7 g/dL (33.0-37.0); MEAN PLATELET VOLUME 10.5 fl (7.2-11.7); MONO # 0.5 K/uL (0.0-0.8); MONO % 8.6 % (0.0-10.0); NEUT % 65.7 % (50.0-75.0); NRBC % 0.1 % (0.0-0.0); RBC 4.22 Mil/uL (3.80-5.20); RED CELL DISTRIBUTION WIDTH 15.4 % (11.5-14.5); WHITE BLOOD COUNT 6.2 K/uL (4.8-10.8)
[2017-12-17 17:39] LABS: ALB/GLOB RATIO 1.1 (1.0-2.1); ALBUMIN 4.1 g/dL (3.5-5.0); ALT/SGPT 40 U/L (9-52); AST/SGOT 26 U/L (14-36); BLOOD UREA NITROGEN 13 mg/dl (7-17); CALCIUM 8.9 mg/dL (8.4-10.2); GFR AFRICAN-AMERICAN > 60; GFR NON-AFRICAN AMERICAN > 60; PARTIAL THROMBOPLASTIN TIME 24.7 Seconds (25.6-37.1); PROTHROMBIN TIME 10.8 Seconds (9.8-13.1)
[2017-12-17 18:01] VITALS: BP 115/68; PULSE 89; TEMP 98.4
[2017-12-17 18:23] VITALS: O2SAT 99
== END 2017-12-17 18:30 | disposition home or self-care (01) ==
LOC: H.ER 15:14
DX: N93.9 Abnormal uterine and vaginal bleeding, unspecified (principal)
CPT/HCPCS: 80053; 81025; 85025; 85610; 85730; 96360; 99284; J7040

== ENCOUNTER 2018-01-11 13:16 | Observation (INO) | payer SELFPAY ==
[2018-01-11 13:16] VITALS: BMI 19.7
[2018-01-11 13:23] VITALS: O2SAT 100
[2018-01-11] MEDS: Sodium Chloride 0.9% 1,000 ML IV SCH (14:19)
[2018-01-11 14:23] LABS: BASO % 0.6 % (0.0-2.0); EOS % 0.8 % (0.0-4.0); HEMOGLOBIN 10.1 g/dL (12.0-16.0); LYMPH # 1.3 K/uL (1.0-4.3); LYMPH % 30.2 % (20.0-40.0); MEAN CELL VOLUME 73.9 fl (81.0-99.0); MEAN CORPUSCULAR HEMOGLOBIN 23.2 pg (27.0-31.0); MEAN CORPUSCULAR HGB CONC 31.4 g/dL (33.0-37.0); MEAN PLATELET VOLUME 10.9 fl (7.2-11.7); MONO # 0.4 K/uL (0.0-0.8); MONO % 9.9 % (0.0-10.0); NEUT # 2.5 K/uL (1.8-7.0); NEUT % 58.5 % (50.0-75.0); NRBC % 0.1 % (0.0-0.0); RBC 4.37 Mil/uL (3.80-5.20); RED CELL DISTRIBUTION WIDTH 16.1 % (11.5-14.5); WHITE BLOOD COUNT 4.3 K/uL (4.8-10.8)
--- NOTE | 2018-01-11 14:24 | CT ---
PROCEDURE: CT HEAD WITHOUT CONTRAST. HISTORY: L arm numbness, headache COMPARISON: None available. TECHNIQUE: Axial computed tomography images were obtained through the head/brain without intravenous contrast. Radiation dose: Total exam DLP = 763.92 mGy-cm. This CT exam was performed using one or more of the following dose reduction techniques: Automated exposure control, adjustment of the mA and/or kV according to patient size, and/or use of iterative reconstruction technique. FINDINGS: HEMORRHAGE: No intracranial hemorrhage. BRAIN: Normal carlos-white matter differentiation and density are appreciated throughout the cerebrum and cerebellum with the brainstem appearing unremarkable as well. There is no mass effect. There is no suspicious extra-axial fluid collection and the midline brain anatomy appears diffusely unremarkable. VENTRICLES: Unremarkable. No hydrocephalus. CALVARIUM: Unremarkable. PARANASAL SINUSES: Unremarkable as visualized. No significant inflammatory changes. MASTOID AIR CELLS: Unremarkable as visualized. No inflammatory changes. OTHER FINDINGS: None. IMPRESSION: Unremarkable unenhanced head CT. Further characterization of the brain by follow-up MRI or CT are available as clinically warranted.
--- NOTE | 2018-01-11 14:29 | CT ---
PROCEDURE: CT Cervical Spine without contrast HISTORY: L arm numbness, headache COMPARISON: None available. TECHNIQUE: Axial computed tomography images were obtained of the cervical spine without the use of intravenous contrast. Coronal and sagittal reformatted images were created and reviewed. Radiation dose: Total exam DLP = 350.85 mGy-cm. This CT exam was performed using one or more of the following dose reduction techniques: Automated exposure control, adjustment of the mA and/or kV according to patient size, and/or use of iterative reconstruction technique. FINDINGS: VERTEBRAE: There is straightening of the cervical curvature without fracture or spondylolisthesis appreciated. No destructive bony lesion identified. The facet joints appear intact diffusely. Craniocervical junction and C1-2 articulations appear within normal limits. DISCS/SPINAL CANAL/NEURAL FORAMINA: No significant central canal or neural foraminal stenosis. Discs heights are grossly preserved. PARASPINAL SOFT TISSUES: Unremarkable. OTHER FINDINGS: Incidental minimal capture through the bilateral pulmonary apices is unremarkable. IMPRESSION: Straightened cervical curvature without fracture or spondylolisthesis appreciated. No bony central canal or neural from stenosis throughout the exam.
[2018-01-11 14:31] LABS: PARTIAL THROMBOPLASTIN TIME 25.1 Seconds (25.6-37.1); PROTHROMBIN TIME 11.4 Seconds (9.8-13.1)
[2018-01-11 14:47] LABS: LDL CHOLESTEROL 91 mg/dL (0-129)
[2018-01-11 15:00] LABS: ALB/GLOB RATIO 1.2 (1.0-2.1); ALBUMIN 4.2 g/dL (3.5-5.0); ALT/SGPT 17 U/L (9-52); AST/SGOT 49 U/L (14-36); BLOOD UREA NITROGEN 13 mg/dl (7-17); CALCIUM 9.3 mg/dL (8.4-10.2); GFR AFRICAN-AMERICAN > 60; GFR NON-AFRICAN AMERICAN > 60; HDL CHOLESTEROL 46 MG/DL (30-70)
--- NOTE | 2018-01-11 15:07 | RAD ---
HISTORY: L arm numbness COMPARISON: No prior. FINDINGS: LUNGS: No active pulmonary disease. PLEURA: No significant pleural effusion identified, no pneumothorax apparent. CARDIOVASCULAR: Normal. OSSEOUS STRUCTURES: No significant abnormalities. VISUALIZED UPPER ABDOMEN: Normal. OTHER FINDINGS: None. IMPRESSION: No active disease.
--- NOTE | 2018-01-11 15:09 | ED PDOC ---
HPI: General Adult Time Seen by Provider: 01/11/18 13:33 Chief Complaint (Nursing): Chest Pain Chief Complaint (Provider): headache, left arm pain History Per: Patient History/Exam Limitations: no limitations Onset/Duration Of Symptoms: Days (3), Gradual Severity: Moderate Location Of Discomfort (Image): 1 - pain/numbness Quality: sharp/numb Recent Trauma: denies Recently: Treated By A Physician, Hospitalized Additional Complaint(s): 37yo female c/o left arm pain/numbness radiating from left shoulder to left elbow x3 days. Associated with mild frontal and right sided headache. Denies falls, trauma, fever, cough, chest pain, neck pain or back pain. Had medical admission last month for back pain seen by pain management, concern for somataform disorder. Has since followed up with [facility]. She took tylenol, unisom and one percocet for pain over the last few days without relief. Past Medical History Reviewed: Historical Data, Nursing Documentation, Vital Signs Vital Signs: Last Vital Signs Temp 97.9 F 01/11/18 13:20 Pulse 79 01/11/18 14:21 Resp 11 L 01/11/18 14:21 BP 120/74 01/11/18 14:21 Pulse Ox 100 01/11/18 15:16 - Medical History PMH: Anemia - Surgical History Other surgeries: ectopic - Family History Family History: States: Unknown Family Hx - Living Arrangements Living Arrangements: With Family - Social History Current smoker - smoking cessation education provided: No - Immunization History Hx Tetanus Toxoid Vaccination: No Hx Influenza Vaccination: No Hx Pneumococcal Vaccination: No - Home Medications Home Medications: Ambulatory Orders Medication Instructions Recorded Levonorgestrel-Ethin Estradiol 1 each PO DAILY 12/03/17 [Vienva-28 Tablet] MedroxyPROGESTERone [Provera] 1 tab PO DAILY #10 tab 12/03/17 Acetaminophen [Tylenol 325mg tab] 975 mg PO Q6 PRN tab 12/10/17 Cyclobenzaprine [Flexeril] 5 mg PO TID PRN #20 tab 03/26/18 Dexamethasone [Decadron] 1 mg PO Q12 #8 tab 12/10/17 Gabapentin [Neurontin] 100 mg PO TID #24 cap 12/10/17 oxyCODONE/Acetaminophen [Percocet 1 tab PO Q4 PRN #20 tab 12/10/17 5/325 mg Tab] Docusate Sodium [Colace] 100 mg PO BID PRN #30 capsule 12/11/17 Ketorolac Tromethamine [Toradol] 10 mg PO Q6H PRN #30 tab 12/11/17 Lidocaine [Aspercreme] 1 each TP DAILY PRN #20 adh..patch 12/11/17 - Allergies Allergies/Adverse Reactions: Allergies Allergy/AdvReac Type Severity Reaction Status Date / Time iron AdvReac VOMITING Verified 01/11/18 13:20 Review of Systems Constitutional: Positive for: Weakness. Negative for: Fever, Chills Respiratory: Negative for: Cough Gastrointestinal: Negative for: Nausea, Vomiting Genitourinary Female: Negative for: Dysuria Musculoskeletal: Positive for: Shoulder Pain, Arm Pain, Hand Pain. Negative for : Neck Pain, Back Pain, Leg Pain Skin: Negative for: Rash, Lesions, Jaundice Neurological: Positive for: Weakness, Numbness. Negative for: Headache, Dizziness Physical Exam - Reviewed Nursing Documentation Reviewed: Yes Vital Signs Reviewed: Yes - Physical Exam Appears: Positive for: Well, Non-toxic, No Acute Distress Head Exam: Positive for: ATRAUMATIC, NORMAL INSPECTION, NORMOCEPHALIC Skin: Positive for: Normal Color, Warm, DRY Eye Exam: Positive for: EOMI, Normal appearance, PERRL ENT: Positive for: Normal ENT Inspection Neck: Positive for: Normal, Painless ROM Cardiovascular/Chest: Positive for: Regular Rate, Rhythm Respiratory: Positive for: CNT, Normal Breath Sounds Gastrointestinal/Abdominal: Positive for: Soft. Negative for: Tenderness Back: Positive for: Normal Inspection Extremity: Positive for: Normal ROM Neurologic/Psych: Positive for: Alert, Oriented, Motor/Sensory Deficits (L arm weakness). Negative for: Gait, Aphasia - Laboratory Results Result Diagrams: 01/11/18 14:00 01/11/18 14:00 - ECG O2 Sat by Pulse Oximetry: 100 Medical Decision Making Medical Decision Making: workup for left arm weakness/numbness in setting of possible somatoform disorder on last admission CT brain/ CSpine/ labs ordered labs unremarkable CT brain and Cspine neg EKG sinus rhythm Admit Obs FP service for MRI and neuro eval ASA initiated Disposition - Clinical Impression Clinical Impression: Left arm numbness - Patient ED Disposition Is Patient to be Admitted: Yes Counseled Patient/Family Regarding: Studies Performed, Diagnosis - Disposition Disposition Time: 15:01 Condition: STABLE Forms: [employer] (Niuean)
--- NOTE | 2018-01-11 16:02 | CP.PCM.HP ---
History of Present Illness - History of Present Illness History of Present Illness: This is a 37 y/o female with PMHx significant for recent ectopic surgery (Oct 2017) and Lumbar DH who presents with gradual onset of pain in L arm 3 days ago. She took tylenol and one percocet for pain over the last few days without relief. She describe pain as sharp 9/10 no alleviating or aggravating factors meanly localized in her L scapula and radiates to her L arm. Associated hand and fingers numbness, also mild frontal and right sided headache. Also patient states chest tightness associated with palpitations and sob intermittently and dizziness since same period of time. Denies recent F/N/V , weakness, blurred vision, recent falls, trauma, neck pain or back pain. Denies attempting to lift any heavy objects. She states never symptoms like this before. Of note had medical admission last month for back pain seen by pain management, concern for somatoform disorder. PMD: Dr Coronado at [facility] PMHx: Anemia, lumbar disc herniation PSHx: ADELA and D&C for ectopic 10/2017 Allergies: Iron Medications: naproxen, omeprazol, vienva Family Hx: No relevant findings Social Hx: Lives with family, no tobacco, no EtOH or illicit drugs. ED course: VS: T 97.7, BP 120/74, HR 79, RR 11, sat 100 RA. MSK:Positive for: Shoulder Pain, Arm Pain, Hand Pain. Negative for: Neck Pain, Back Pain, Leg Pain Neuro: Positive for: Weakness, Numbness. Negative for: Headache, Dizziness Labs: cbc 4.3<10.1/32.3>184, cmp wnl CT brain and Cspine negative EKG sinus rhythm Present on Admission - Present on Admission Any Indicators Present on Admission: No Review of Systems - Review of Systems All systems: reviewed and no additional remarkable complaints except (HPI) Past Patient History - Infectious Disease Hx of Infectious Diseases: None - Past Medical History & Family History Past Medical History?: Yes - Past Social History Smoking Status: Never Smoked - CARDIAC Hx Cardiac Disorders: No - PULMONARY Hx Respiratory Disorders: No - NEUROLOGICAL Hx Neurological Disorder: No - HEENT Hx HEENT Problems: No - ENDOCRINE/METABOLIC Hx Endocrine Disorders: No - HEMATOLOGICAL/ONCOLOGICAL Hx Anemia: Yes - INTEGUMENTARY Hx Dermatological Problems: No - MUSCULOSKELETAL/RHEUMATOLOGICAL Hx Musculoskeletal Disorders: No Hx Falls: No - GASTROINTESTINAL Hx Gastrointestinal Disorders: Yes (hyperemesis no nausea vomitting x 2 days instructed to eat banana and juice) - GENITOURINARY/GYNECOLOGICAL Hx Genitourinary Disorders: Yes (hx ectopic ) Other/Comment: 11/25/16 ECTOPIC - PSYCHIATRIC Hx Psychophysiologic Disorder: No Hx Substance Use: No - SURGICAL HISTORY Hx Surgeries: Yes Hx Dilation and Curettage: Yes Other/Comment: right salpingectomy due to ruptured ectopic - ANESTHESIA Hx Anesthesia: Yes Hx Anesthesia Reactions: No Hx Malignant Hyperthermia: No Meds Allergies/Adverse Reactions: Allergies Allergy/AdvReac Type Severity Reaction Status Date / Time iron AdvReac VOMITING Verified 01/11/18 13:20 Physical Exam - Constitutional Appears: No Acute Distress - Head Exam Head Exam: NORMAL INSPECTION - Eye Exam Eye Exam: EOMI, PERRL Pupil Exam: NORMAL ACCOMODATION - ENT Exam ENT Exam: Mucous Membranes Moist - Neck Exam Neck exam: Positive for: Full Rom. Negative for: Lymphadenopathy - Respiratory Exam Respiratory Exam: Clear to Auscultation Bilateral, NORMAL BREATHING PATTERN - Cardiovascular Exam Cardiovascular Exam: REGULAR RHYTHM, +S1, +S2. absent: Systolic Murmur - GI/Abdominal Exam GI & Abdominal Exam: Normal Bowel Sounds, Soft. absent: Distended, Tenderness - Expanded Upper Extremities Exam Left Shoulder exam: full ROM (negative pronator lift). absent: abrasion, crepitus, deformity, swelling - Neurological Exam Neurological exam: Alert, CN II-XII Intact, Oriented x3, Reflexes Normal Additional comments: Strength 5/5 in all extremities, sensation to light touch intact in all dermatomes tested. - Skin Skin Exam: Dry, Warm Results - Vital Signs Recent Vital Signs: Last Vital Signs Temp 97.9 F 01/11/18 13:20 Pulse 81 01/11/18 15:57 Resp 14 01/11/18 15:57 BP 126/63 01/11/18 15:57 Pulse Ox 100 01/11/18 15:57 - Labs Result Diagrams: 01/11/18 14:00 01/11/18 14:00 Labs: Laboratory Results - last 24 hr 01/11/18 01/11/18 01/11/18 13:49 14:00 14:00 WBC 4.3 L RBC 4.37 Hgb 10.1 L Hct 32.3 L MCV 73.9 L MCH 23.2 L MCHC 31.4 L RDW 16.1 H Plt Count 184 MPV 10.9 Neut % (Auto) 58.5 Lymph % (Auto) 30.2 [place] % (Auto) 9.9 Eos % (Auto) 0.8 Baso % (Auto) 0.6 Neut # (Auto) 2.5 Lymph # (Auto) 1.3 [place] # (Auto) 0.4 Eos # (Auto) 0.0 Baso # (Auto) 0.0 PT INR APTT Sodium 142 Potassium 4.7 Chloride 105 Carbon Dioxide 22 Anion Gap 20 BUN 13 Creatinine 0.6 L Est GFR ( Amer) > 60 Est GFR (Non-Af Amer) > 60 POC Glucose (mg/dL) 68 Random Glucose 78 Calcium 9.3 Total Bilirubin 0.8 AST 49 H D ALT 17 Alkaline Phosphatase 55 Troponin I < 0.0120 Total Protein 7.8 Albumin 4.2 Globulin 3.6 Albumin/Globulin Ratio 1.2 Triglycerides 119 Cholesterol 186 LDL Cholesterol Direct 91 HDL Cholesterol 46 Blood Type Antibody Screen BBK History Checked 01/11/18 01/11/18 14:00 14:00 WBC RBC Hgb Hct MCV MCH MCHC RDW Plt Count MPV Neut % (Auto) Lymph % (Auto) [place] % (Auto) Eos % (Auto) Baso % (Auto) Neut # (Auto) Lymph # (Auto) [place] # (Auto) Eos # (Auto) Baso # (Auto) PT 11.4 INR 1.0 APTT 25.1 L Sodium Potassium Chloride Carbon Dioxide Anion Gap BUN Creatinine Est GFR ( Amer) Est GFR (Non-Af Amer) POC Glucose (mg/dL) Random Glucose Calcium Total Bilirubin AST ALT Alkaline Phosphatase Troponin I Total Protein Albumin Globulin Albumin/Globulin Ratio Triglycerides Cholesterol LDL Cholesterol Direct HDL Cholesterol Blood Type A POSITIVE Antibody Screen Negative BBK History Checked Patient has bt Assessment & Plan - Assessment and Plan (Free Text) Assessment: 37 y/o female with PMHx of recent ectopic surgery (Oct 2017) and back pain admitted due to L scapula/arm pain and numbness. 1- Left scapula/arm pain and numbness. - admit to Med/Surg - r/o CVA vs MSK pain - will investigate about psychosocial ideology of arm pain - non focal deficits - CT head/neck wnl. - ASA 81 mg PO daily - Tylenol and Ibuprofen PRN for pain management. - Brain MRI - Cervical spine MRI - Neurology consulted, Dr Rolle, recs appreciated. - f/cbc, cmp. 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
--- NOTE | 2018-01-11 17:40 | MRI ---
PROCEDURE: MRI BRAIN WITHOUT CONTRAST HISTORY: L arm weakness/numbness COMPARISON: Head CT without contrast also performed 01/11/2018. TECHNIQUE: Multiplanar, multisequence MR images of the brain were obtained without intravenous contrast enhancement. FINDINGS: HEMORRHAGE: None DWI: No evidence of an acute or early subacute infarction. BRAIN PARENCHYMA: Intrinsic signal throughout the carlos and white matter structures above below the tentorium includes appears within normal limits including the brainstem. There is no mass effect, parenchymal edema or loss of the corticomedullary differentiation. Midline brain anatomy appears within normal limits including the corpus callosum, brainstem and craniocervical junction. There is no suspicious extra-axial fluid collection identified. VENTRICLES: Unremarkable. No hydrocephalus. CRANIUM: Unremarkable. ORBITS: Grossly unremarkable. PARANASAL SINUSES/MASTOIDS: Clear VASCULAR SYSTEM: Skull base flow voids intact. OTHER FINDINGS: None. IMPRESSION: Unremarkable non contrast enhanced MRI of the brain.
--- NOTE | 2018-01-11 17:42 | MRI ---
PROCEDURE: MR CERVICAL SPINE WITHOUT CONTRAST HISTORY: L arm numbness COMPARISON: Cervical spine CT without contrast 01/11/2018. TECHNIQUE: Multiecho multiplanar sequences were performed through the cervical spine without the use of intravenous contrast. FINDINGS: Normal lordotic curvature. Craniocervical junction unremarkable. Vertebral body heights preserved. No marrow signal abnormality. Normal cervical cord. No prevertebral or paraspinal abnormality. C2-C3: No disc herniation, spinal canal stenosis or neural foraminal narrowing. C3-C4: No disc herniation, spinal canal stenosis or neural foraminal narrowing. C4-C5: No disc herniation, spinal canal stenosis or neural foraminal narrowing. C5-C6: No disc herniation, spinal canal stenosis or neural foraminal narrowing. C6-C7: No disc herniation, spinal canal stenosis or neural foraminal narrowing. C7-T1: No disc herniation, spinal canal stenosis or neural foraminal narrowing. OTHER FINDINGS: None. IMPRESSION: Unremarkable non contrast enhanced MRI of the cervical spine.
[2018-01-11] MEDS ORDERED: LEVONORGESTREL ETHIN ESTRADIOL PO SCH (19:00)
[2018-01-12] MEDS: Sodium Chloride 0.9% 1,000 ML IV SCH ×2 (00:02→09:55)
[2018-01-12 00:19] VITALS: RESP 20
[2018-01-12 08:38] VITALS: BP 107/70; PULSE 84; TEMP 98.1
[2018-01-12] MEDS ORDERED: Pantoprazole 40 mg EC Tab PO SCH (09:00)
[2018-01-12] MEDS ORDERED: Enoxaparin 40 mg Syringe SC SCH (09:00)
--- NOTE | 2018-01-12 09:56 | CP.PCM.CON ---
History of Present Illness - History of Present Illness History of Present Illness: Ms. Mera is a 37-year-old woman with a past medical history of recent ectopic surgery (Oct 2017), who had developed multiple and seemingly related symptoms. Her complaint now is of gradual onset of pain in left arm that started 4 days ago. It is located in the left elbow, radiates down to the lateral aspect of the forearm, and up to the left shoulder. It is worse with flexion of the elbow. She states that several months ago, when she had the miscarriage, nurses were taking blood from her left arm and attributes the pain to that. She took Tylenol and opiates to no avail. The pain radiates to the back of the scapula as well and there is tenderness in that region. She also complained of chest tightness and chest pain as well as shortness of breath. MRI of the brain and cervical spine were normal. Review of Systems - Review of Systems All systems: reviewed and no additional remarkable complaints except Past Patient History - Infectious Disease Hx of Infectious Diseases: None - Past Medical History & Family History Past Medical History?: Yes - Past Social History Smoking Status: Never Smoked - CARDIAC Hx Cardiac Disorders: No - PULMONARY Hx Respiratory Disorders: No - NEUROLOGICAL Hx Neurological Disorder: No - HEENT Hx HEENT Problems: No - RENAL Hx Chronic Kidney Disease: No - ENDOCRINE/METABOLIC Hx Endocrine Disorders: No - HEMATOLOGICAL/ONCOLOGICAL Hx Blood Disorders: Yes Hx AIDS: No Hx Anemia: Yes Hx Human Immunodeficiency Virus (HIV): No - INTEGUMENTARY Hx Dermatological Problems: No - MUSCULOSKELETAL/RHEUMATOLOGICAL Hx Musculoskeletal Disorders: Yes Hx Falls: No Hx Herniated Disk: Yes - GASTROINTESTINAL Hx Gastrointestinal Disorders: Yes (hyperemesis no nausea vomitting x 2 days instructed to eat banana and juice) - GENITOURINARY/GYNECOLOGICAL Hx Genitourinary Disorders: Yes (hx ectopic ) - PSYCHIATRIC Hx Psychophysiologic Disorder: No Hx Substance Use: No - SURGICAL HISTORY Hx Surgeries: Yes Hx Dilation and Curettage: Yes Other/Comment: right salpingectomy due to ruptured ectopic - ANESTHESIA Hx Anesthesia: Yes Hx Anesthesia Reactions: No Hx Malignant Hyperthermia: No Meds Allergies/Adverse Reactions: Allergies Allergy/AdvReac Type Severity Reaction Status Date / Time iron AdvReac VOMITING Verified 01/11/18 13:20 - Medications Medications: Current Medications Acetaminophen (Tylenol 325mg Tab) 650 mg PO Q6 PRN PRN Reason: Pain, Mild (1-3) Enoxaparin Sodium (Lovenox) 40 mg SC DAILY [facility] PRN Reason: Protocol Last Admin: 01/12/18 08:54 Dose: 40 mg Home Med (Levonorgestrel-Ethin Estradiol [Vienva-28 Tablet]) 1 tab PO DAILY@ 1900 [facility] Last Admin: 01/11/18 19:43 Dose: 1 tab Sodium Chloride (Sodium Chloride 0.9%) 1,000 mls @ 100 mls/hr IV .Q10H [facility] Last Admin: 01/12/18 00:02 Dose: Not Given Ibuprofen (Motrin Tab) 600 mg PO Q6 PRN PRN Reason: Pain, moderate (4-7) Last Admin: 01/11/18 19:44 Dose: 600 mg Morphine Sulfate (Morphine) 2 mg IVP Q6 PRN PRN Reason: Pain, severe (8-10) Last Admin: 01/12/18 08:53 Dose: 2 mg Pantoprazole Sodium (Protonix Ec Tab) 40 mg PO DAILY [facility] Last Admin: 01/12/18 08:54 Dose: 40 mg Physical Exam - Neurological Exam Neurological exam: Alert, CN II-XII Intact, Normal Gait, Oriented x3, Reflexes Normal Additional comments: Pain localized to the lateral antebrachial cutaneous nerve, as well as the supraclavicular and axillary lateral cutaneous nerve distributions. There is slight weakness of the left arm on elbow flexion/extension and shoulder abduction that could be pain related. Hand evaluation manager was also weaker on the left side. Involvement appears to be of C4-C6 brachial plexus. Results - Vital Signs Recent Vital Signs: Last Vital Signs Temp 98.1 F 01/12/18 08:37 Pulse 84 01/12/18 08:37 Resp 20 01/12/18 08:37 BP 107/70 01/12/18 08:37 Pulse Ox 100 01/12/18 08:37 - Labs Result Diagrams: 01/11/18 14:00 01/11/18 14:00 Labs: Laboratory Results - last 24 hr 01/11/18 01/11/18 01/11/18 13:49 14:00 14:00 WBC 4.3 L RBC 4.37 Hgb 10.1 L Hct 32.3 L MCV 73.9 L MCH 23.2 L MCHC 31.4 L RDW 16.1 H Plt Count 184 MPV 10.9 Neut % (Auto) 58.5 Lymph % (Auto) 30.2 [place] % (Auto) 9.9 Eos % (Auto) 0.8 Baso % (Auto) 0.6 Neut # (Auto) 2.5 Lymph # (Auto) 1.3 [place] # (Auto) 0.4 Eos # (Auto) 0.0 Baso # (Auto) 0.0 PT INR APTT Sodium 142 Potassium 4.7 Chloride 105 Carbon Dioxide 22 Anion Gap 20 BUN 13 Creatinine 0.6 L Est GFR ( Amer) > 60 Est GFR (Non-Af Amer) > 60 POC Glucose (mg/dL) 68 Random Glucose 78 Hemoglobin A1c Calcium 9.3 Total Bilirubin 0.8 AST 49 H D ALT 17 Alkaline Phosphatase 55 Troponin I < 0.0120 Total Protein 7.8 Albumin 4.2 Globulin 3.6 Albumin/Globulin Ratio 1.2 Triglycerides 119 Cholesterol 186 LDL Cholesterol Direct 91 HDL Cholesterol 46 Blood Type Antibody Screen BBK History Checked 01/11/18 01/11/18 01/11/18 14:00 14:00 14:00 WBC RBC Hgb Hct MCV MCH MCHC RDW Plt Count MPV Neut % (Auto) Lymph % (Auto) [place] % (Auto) Eos % (Auto) Baso % (Auto) Neut # (Auto) Lymph # (Auto) [place] # (Auto) Eos # (Auto) Baso # (Auto) PT 11.4 INR 1.0 APTT 25.1 L Sodium Potassium Chloride Carbon Dioxide Anion Gap BUN Creatinine Est GFR ( Amer) Est GFR (Non-Af Amer) POC Glucose (mg/dL) Random Glucose Hemoglobin A1c 5.5 Calcium Total Bilirubin AST ALT Alkaline Phosphatase Troponin I Total Protein Albumin Globulin Albumin/Globulin Ratio Triglycerides Cholesterol LDL Cholesterol Direct HDL Cholesterol Blood Type A POSITIVE Antibody Screen Negative BBK History Checked Patient has bt Assessment & Plan (1) Brachial plexopathy Assessment and Plan: This is a possible diagnosis considering her distribution of pain. The cause could be inflammatory, or idiopathic. Treatment with Neurontin 300 mg TID can be initiate. An MRI of the brachial plexus with and without contrast may aid in the diagnosis and may be done as an outpatient in 1 to 2 weeks. If positive , and she does not respond to Neurontin, we may consider steroids. Nerve conduction/EMG may be considered in 2 weeks if the pain does not resolve. Thank you. Status: Acute
--- NOTE | 2018-01-12 10:53 | CP.PCM.DIS ---
Provider - Provider Date of Admission: 01/11/18 15:25 Attending physician: Josselin Rogers MD Time Spent in preparation of Discharge (in minutes): 30 Diagnosis - Discharge Diagnosis (1) Muscle spasm Status: Acute (2) Neuropathy Status: Acute Hospital Course - Lab Results Lab Results: Most Recent Lab Values WBC 4.3 K/uL (4.8-10.8) L 01/11/18 14:00 RBC 4.37 Mil/uL (3.80-5.20) 01/11/18 14:00 Hgb 10.1 g/dL (12.0-16.0) L 01/11/18 14:00 Hct 32.3 % (34.0-47.0) L 01/11/18 14:00 MCV 73.9 fl (81.0-99.0) L 01/11/18 14:00 MCH 23.2 pg (27.0-31.0) L 01/11/18 14:00 MCHC 31.4 g/dL (33.0-37.0) L 01/11/18 14:00 RDW 16.1 % (11.5-14.5) H 01/11/18 14:00 Plt Count 184 K/uL (130-400) 01/11/18 14:00 MPV 10.9 fl (7.2-11.7) 01/11/18 14:00 Neut % (Auto) 58.5 % (50.0-75.0) 01/11/18 14:00 Lymph % (Auto) 30.2 % (20.0-40.0) 01/11/18 14:00 [place] % (Auto) 9.9 % (0.0-10.0) 01/11/18 14:00 Eos % (Auto) 0.8 % (0.0-4.0) 01/11/18 14:00 Baso % (Auto) 0.6 % (0.0-2.0) 01/11/18 14:00 Neut # (Auto) 2.5 K/uL (1.8-7.0) 01/11/18 14:00 Lymph # (Auto) 1.3 K/uL (1.0-4.3) 01/11/18 14:00 [place] # (Auto) 0.4 K/uL (0.0-0.8) 01/11/18 14:00 Eos # (Auto) 0.0 K/uL (0.0-0.7) 01/11/18 14:00 Baso # (Auto) 0.0 K/uL (0.0-0.2) 01/11/18 14:00 PT 11.4 Seconds (9.8-13.1) 01/11/18 14:00 INR 1.0 (0.9-1.2) 01/11/18 14:00 APTT 25.1 Seconds (25.6-37.1) L 01/11/18 14:00 Sodium 142 mmol/l (132-148) 01/11/18 14:00 Potassium 4.7 MMOL/L (3.6-5.0) 01/11/18 14:00 Chloride 105 mmol/L (98-107) 01/11/18 14:00 Carbon Dioxide 22 mmol/L (22-30) 01/11/18 14:00 Anion Gap 20 (10-20) 01/11/18 14:00 BUN 13 mg/dl (7-17) 01/11/18 14:00 Creatinine 0.6 mg/dl (0.7-1.2) L 01/11/18 14:00 Est GFR ( Amer) > 60 01/11/18 14:00 Est GFR (Non-Af Amer) > 60 01/11/18 14:00 POC Glucose (mg/dL) 68 mg/dL (65-110) 01/11/18 13:49 Random Glucose 78 mg/dL (65-105) 01/11/18 14:00 Hemoglobin A1c 5.5 % (4.2-6.5) 01/11/18 14:00 Calcium 9.3 mg/dL (8.4-10.2) 01/11/18 14:00 Total Bilirubin 0.8 mg/dl (0.2-1.3) 01/11/18 14:00 AST 49 U/L (14-36) H D 01/11/18 14:00 ALT 17 U/L (9-52) 01/11/18 14:00 Alkaline Phosphatase 55 U/L (38-126) 01/11/18 14:00 Troponin I < 0.0120 ng/mL (0.00-0.120) 01/11/18 14:00 Total Protein 7.8 G/DL (6.3-8.2) 01/11/18 14:00 Albumin 4.2 g/dL (3.5-5.0) 01/11/18 14:00 Globulin 3.6 gm/dL (2.2-3.9) 01/11/18 14:00 Albumin/Globulin Ratio 1.2 (1.0-2.1) 01/11/18 14:00 Triglycerides 119 mg/DL (0-149) 01/11/18 14:00 Cholesterol 186 mg/dL (0-199) 01/11/18 14:00 LDL Cholesterol Direct 91 mg/dL (0-129) 01/11/18 14:00 HDL Cholesterol 46 MG/DL (30-70) 01/11/18 14:00 Blood Type A POSITIVE 01/11/18 14:00 Antibody Screen Negative 01/11/18 14:00 BBK History Checked Patient has bt 01/11/18 14:00 - Hospital Course Hospital Course: 37 y.o. female admitted with multiple visits to [facility] with complaints of left upper arm numbness and left shoulder pain admitted for evaluation of recurrent left upper extremity pain and numbness. During the E.R. course CT and MRI cervical spine and CT Head WNL. Pain was atraumatic, started 3 days ago, and not improving with NSAIDS. Physical exam positive for Tight/Spasm of Left trapezius muscle with straightening of the lumbar curve. Neurology consult Dr. Rolle recommending treatment with Gabapentin and if no resolution of symptoms in two weeks then Nerve conduction studies and MRI of brachial plexus of left upper extremities can be considered. Will also explore possibility of psychosocial stresors that could be contributing to patient's symptoms given patient has requested couple's counseling in the past. Discharge Exam - Head Exam Head Exam: NORMAL INSPECTION - Eye Exam Eye Exam: Normal appearance. absent: Scleral icterus - ENT Exam ENT Exam: Mucous Membranes Moist - Neck Exam Neck exam: Full Rom, Normal Inspection - Respiratory Exam Respiratory Exam: Clear to PA & Lateral, NORMAL BREATHING PATTERN - Cardiovascular Exam Cardiovascular Exam: REGULAR RHYTHM, +S1, +S2 - GI/Abdominal Exam GI & Abdominal Exam: Soft. absent: Tenderness - Extremities Exam Additional comments: +Left Trapezius tenderness and knots appreciated Full active ROM Specialized test including neers, cross arm test, epperson, Hawking, and Finklestein test negative Strength 5/5 Bilaterally - Neurological Exam Neurological exam: Alert, Oriented x3 - Psychiatric Exam Psychiatric exam: Anxious Discharge Plan - Discharge Medications Prescriptions: Gabapentin [Neurontin] 300 mg PO TID #30 cap Naproxen [Naprosyn] 500 mg PO Q12 PRN #30 tablet PRN Reason: Pain, Moderate (4-7) Omeprazole 40 mg PO DAILY PRN #20 capsule. PRN Reason: Heartburn - Follow Up Plan Condition: STABLE Disposition: HOME/ ROUTINE Patient education suggested?: Yes
[2018-01-12 11:33] LABS: BASO % 0.5 % (0.0-2.0); EOS % 0.7 % (0.0-4.0); HEMOGLOBIN 9.6 g/dL (12.0-16.0); LYMPH # 1.3 K/uL (1.0-4.3); LYMPH % 30.6 % (20.0-40.0); MEAN CELL VOLUME 73.2 fl (81.0-99.0); MEAN CORPUSCULAR HEMOGLOBIN 22.8 pg (27.0-31.0); MEAN CORPUSCULAR HGB CONC 31.2 g/dL (33.0-37.0); MEAN PLATELET VOLUME 10.7 fl (7.2-11.7); MONO # 0.3 K/uL (0.0-0.8); MONO % 7.8 % (0.0-10.0); NEUT # 2.5 K/uL (1.8-7.0); NEUT % 60.4 % (50.0-75.0); RBC 4.21 Mil/uL (3.80-5.20); RED CELL DISTRIBUTION WIDTH 16.1 % (11.5-14.5); WHITE BLOOD COUNT 4.2 K/uL (4.8-10.8)
[2018-01-12 11:49] LABS: ALB/GLOB RATIO 1.1 (1.0-2.1); ALBUMIN 3.5 g/dL (3.5-5.0); ALT/SGPT 24 U/L (9-52); AST/SGOT 18 U/L (14-36); BLOOD UREA NITROGEN 9 mg/dl (7-17); CALCIUM 8.3 mg/dL (8.4-10.2); GFR AFRICAN-AMERICAN > 60; GFR NON-AFRICAN AMERICAN > 60
--- NOTE | 2018-01-12 12:38 | CARD ---
APPROVED REPORT EKG Measurement Heart [id number] <Conclusion> Normal sinus rhythm Possible Left atrial enlargement Borderline ECG
== END 2018-01-12 16:42 | disposition home or self-care (01) ==
LOC: H.ER 13:16 → H.ERHOLD 15:25 → H.MEDSURG1 18:10
PROVIDERS: ADMIT Family Medicine; ATTEND Family Medicine
DX: G54.0 Brachial plexus disorders (principal); M51.26 Other intervertebral disc displacement, lumbar region; M62.838 Other muscle spasm; D50.9 Iron deficiency anemia, unspecified; Z79.82 Long term (current) use of aspirin; Z79.899 Other long term (current) drug therapy; Z87.59 Personal history of other complications of pregnancy, childbirth and the puerperium
CPT/HCPCS: 36415; 70450; 70551; 71045; 72125; 72141; 80053; 80061; 81025; 82948; 83036; 84484; 85025; 85610; 85730; 86850; 86900; 93005; 96372; 96374; 96375; 96376; 99285; G0378; J1650; J1885; J2270; J7040

== ENCOUNTER 2018-02-23 14:23 | Emergency (ER) | payer SELFPAY ==
[2018-02-23 14:23] VITALS: BMI 19.7
[2018-02-23] MEDS ORDERED: Sodium Chloride 0.9% 1,000 ML IV SCH (15:15)
--- NOTE | 2018-02-23 15:37 | ED PDOC ---
Syncope/Near Syncope/Dizziness Time Seen by Provider: 02/23/18 14:38 Chief Complaint (Nursing): Dizziness/Lightheaded Chief Complaint (Provider): Near Syncope History Per: Patient History/Exam Limitations: no limitations Onset/Duration Of Symptoms: Days (x today) Current Symptoms Are (Timing): Still Present Additional Complaint(s): 37-year-old female presents to ED complaining of shortness of breath, nausea, 1 episode of non-bloody, non-bilious vomiting and global headache since 13:00 when she was going to get lunch. Pt states she felt she was going to faint and pass out. Patient does note she did get blood taken for her physical exam just prior to onset of symptoms, but does not have the results. Reports did not eat before her blood was taken. Denies taking medications prior to arrival. Rates headache a 5 out of 10. Reports "chest tightness". (-) fever, (-) neck pain/ stiffness (-) cough (-) visual changes, (-) abdominal pain, (-) diarrhea (-) rash (-) sick contacts, (-) recent travel. (-) bloody stools (-) urinary symptoms. Of note, patient does report a history of anemia, however reports she is allergic to iron supplements. PMD: Craig LMP: 02/01/18 Past Medical History Reviewed: Historical Data, Nursing Documentation, Vital Signs Vital Signs: Last Vital Signs Temp 98.1 F 02/23/18 14:40 Pulse 77 02/23/18 14:40 Resp 18 02/23/18 14:40 BP 125/69 02/23/18 14:40 Pulse Ox 100 02/23/18 14:40 - Medical History PMH: Anemia Other PMH: Miscarriage, Ectopic - Surgical History Other surgeries: D&C, Fallopian Tube Removal s/p Ectopic - Family History Family History: States: Unknown Family Hx - Social History Current smoker - smoking cessation education provided: No Alcohol: None Drugs: Denies - Home Medications Home Medications: Ambulatory Orders Medication Instructions Recorded Levonorgestrel-Ethin Estradiol 1 tab PO DAILY@1900 12/03/17 [Vienva-28 Tablet] Gabapentin [Neurontin] 300 mg PO TID #30 cap 01/12/18 Naproxen [Naprosyn] 500 mg PO Q12 PRN #30 tablet 01/12/18 Omeprazole 40 mg PO DAILY PRN #20 capsule. 01/12/18 Meclizine [Meclizine*] 25 mg PO Q6 PRN #12 tab 02/23/18 - Allergies Allergies/Adverse Reactions: Allergies Allergy/AdvReac Type Severity Reaction Status Date / Time iron AdvReac VOMITING Verified 01/11/18 13:20 Review of Systems ROS Statement: Except As Marked, All Systems Reviewed And Found Negative Constitutional: Negative for: Fever Eyes: Negative for: Vision Change Cardiovascular: Positive for: Other ("chest tightness") Gastrointestinal: Positive for: Vomiting (non-bloody, non-bilious x1). Negative for: Abdominal Pain, Hematochezia Neurological: Positive for: Headache (global) Physical Exam - Reviewed Nursing Documentation Reviewed: Yes Vital Signs Reviewed: Yes - Physical Exam Comments: GENERAL APPEARANCE: Patient is awake, alert, oriented x 3, in no acute distress. Resting comfortably. SKIN: Warm, dry; (-) cyanosis; (-) rash. HEAD: (-) scalp swelling or tenderness EYES: (-) scleral icterus. EOMI and painless. ENMT: Airway patent, (-) stridor. Mucous membranes are moist. Pharynx: clear (- ) erythema (-) exudate. NECK: Supple, FROM (-) tenderness, (-) stiffness, (-) meningismus, (-) lymphadenopathy. CHEST AND RESPIRATORY: (-) rales, (-) rhonchi, (-) wheezes; breath sounds equal bilaterally. Speaking in full sentences, respirations even and nonlabored. HEART AND CARDIOVASCULAR: (-) irregularity; (-) murmur, (-) gallop. ABDOMEN AND GI: Soft; (-) tenderness (-) distention (-) guarding (-) rebound (- ) CVA tenderness bilaterally. EXTREMITIES: (-) deformity. NEURO AND PSYCH: Mental status as above. home service director: Pupils are equal and reactive; (-) facial asymmetry; tongue and uvula midline. Strength symmetric. Speech clear, gait steady. - Laboratory Results Result Diagrams: 02/23/18 15:44 02/23/18 15:44 Urine POC: Negative Urine dip results: Positive for: Blood (trace-lysed), Ketones (40). Negative for: Leukocyte Esterase, Nitrate, Glucose, Bilirubin, Protein - ECG O2 Sat by Pulse Oximetry: 100 (RA) Pulse Ox Interpretation: Normal Medical Decision Making Medical Decision Making: Time: 15:02 Impression(s): Near syncope Plan: - IV access - Type and Screen - EKG - CMP - Drug Screen, Urine - CBC (with differentials) - CXR - Glucose, Blood, POC Stat - Sodium Chloride 0.9% 1,000 ml IV 1,000 mls/hr - Antivert 25 mg PO - Reglan 10 mg IVP - Tylenol 325 mg Tab - Urine dipstick/ 1550 Udip reviewed. Urine : negative EKG: NSR @ 82 bpm (-) ST elevation (-) ectopy, QTc 446 CXR: no acute disease as read by Everton VIZCAINO Accucheck: 78 1645 Hgb: 9.5, consistent with prior levels. Potassium: 3.4. 20mEq of Potassium ordered. Patient with no additional complaints at this time 1735 On re-evaluation, patient reports resolution of symptoms. On exam, patient remains AAOx3, in no acute distress. Lungs clear to auscultation, cardiac RRR, abdomen soft, non-tender, repeat neuro exam shows no focal findings. Patient ambulating in ED with a steady, unassisted gait. Vitals stable, stable for discharge. Lab/Diagnostic results d/w the patient in great detail. Diagnosis of near syncope, anemia, hypokalemia d/w the patient. Based on history, exam and diagnostic results, plan will be for outpatient follow up. Patient instructed to follow-up with pmd / referral provided / the clinic in 1- 2 days without fail. Advised to take medication as prescribed. Return to the emergency room at any time for any new or worsening symptoms. Patient states she fully agrees with and understands discharge instructions. States that she agrees with the plan and disposition. Verbalized and repeated discharge instructions and plan. I have given the patient opportunity to ask any additional questions. Scribe Attestation: Documented by Tyrel Steve, acting as a scribe for VIRAL Saavedra. Provider Scribe Attestation: All medical record entries made by the Scribe were at my direction and personally dictated by me. I have reviewed the chart and agree that the record accurately reflects my personal performance of the history, physical exam, medical decision making, and the department course for this patient. I have also personally directed, reviewed, and agree with the discharge instructions and disposition. Disposition - Clinical Impression Clinical Impression: Anemia, Near syncope, Dizziness, Hypokalemia - Patient ED Disposition Is Patient to be Admitted: No Counseled Patient/Family Regarding: Studies Performed, Diagnosis, Need For Followup, Rx Given - Disposition Referrals: Dean Craig DO [Family Provider] - Disposition: Routine/Home Disposition Time: 18:09 Condition: FAIR Additional Instructions: FOLLOW UP WITH PMD IN 1-2 DAYS WITHOUT FAIL. RETURN TO ED WITH ANY NEW OR WORSENING SYMPTOMS. Prescriptions: Meclizine [Meclizine*] 25 mg PO Q6 PRN #12 tab PRN Reason: DIZZINESS Instructions: Hypokalemia (DC), High Potassium Diet, Dizziness, Nonvertigo, (DC ), Near Fainting Forms: [employer] (Kenyan) Print Language: CITIZEN OF [place] - POA Present On Arrival: None Results - Lab Results Lab Results: 02/23/18 02/23/18 02/23/18 15:44 15:44 15:44 WBC 4.6 L RBC 4.33 Hgb 9.5 L Hct 30.8 L MCV 71.0 L MCH 22.1 L MCHC 31.0 L RDW 18.7 H Plt Count 168 MPV 11.6 Neut % (Auto) 58.1 Lymph % (Auto) 31.8 Rhea % (Auto) 9.0 Eos % (Auto) 0.5 Baso % (Auto) 0.6 Neut # (Auto) 2.7 Lymph # (Auto) 1.5 Rhea # (Auto) 0.4 Eos # (Auto) 0.0 Baso # (Auto) 0.0 Sodium 140 Potassium 3.4 L Chloride 107 Carbon Dioxide 21 L Anion Gap 15 BUN 9 Creatinine 0.6 L Est GFR ( Amer) > 60 Est GFR (Non-Af Amer) > 60 Random Glucose 75 Calcium 9.0 Total Bilirubin 0.8 AST 22 ALT 37 Alkaline Phosphatase 49 Total Protein 7.4 Albumin 4.1 Globulin 3.3 Albumin/Globulin Ratio 1.2 Urine Opiates Screen Negative Urine Methadone Screen Negative Ur Barbiturates Screen Negative Ur Phencyclidine Scrn Negative Ur Amphetamines Screen Negative U Benzodiazepines Scrn Negative U Oth Cocaine Metabols Negative U Cannabinoids Screen Negative
[2018-02-23 15:52] LABS: BASO % 0.6 % (0.0-2.0); EOS % 0.5 % (0.0-4.0); HEMOGLOBIN 9.5 g/dL (12.0-16.0); LYMPH # 1.5 K/uL (1.0-4.3); LYMPH % 31.8 % (20.0-40.0); MEAN CORPUSCULAR HEMOGLOBIN 22.1 pg (27.0-31.0); MEAN PLATELET VOLUME 11.6 fl (7.2-11.7); MONO # 0.4 K/uL (0.0-0.8); NEUT # 2.7 K/uL (1.8-7.0); NEUT % 58.1 % (50.0-75.0); NRBC % 0.1 % (0.0-0.0); RBC 4.33 Mil/uL (3.80-5.20); RED CELL DISTRIBUTION WIDTH 18.7 % (11.5-14.5); WHITE BLOOD COUNT 4.6 K/uL (4.8-10.8)
[2018-02-23 16:06] LABS: ALB/GLOB RATIO 1.2 (1.0-2.1); ALBUMIN 4.1 g/dL (3.5-5.0); ALT/SGPT 37 U/L (9-52); AST/SGOT 22 U/L (14-36); BLOOD UREA NITROGEN 9 mg/dl (7-17); GFR AFRICAN-AMERICAN > 60; GFR NON-AFRICAN AMERICAN > 60
[2018-02-23 16:19] LABS: BARBITURATES, UR NEGATIVE (NEGATIVE); BENZODIAZEPINES, UR NEGATIVE (NEGATIVE); OPIATES, UR NEGATIVE (NEGATIVE); PHENCYCLIDINE, UR NEGATIVE (NEGATIVE)
[2018-02-23] MEDS ORDERED: Potassium Chloride 20 mEq/15 ml LIQ UD PO STA (16:46)
[2018-02-23] MEDS ORDERED: Potassium Chloride 20 mEq ER Tab PO ONE (16:50)
--- NOTE | 2018-02-23 17:06 | RAD ---
HISTORY: SOB COMPARISON: Portable chest 01/11/2018. TECHNIQUE: Chest PA and lateral FINDINGS: LUNGS: No active pulmonary disease. PLEURA: No significant pleural effusion identified. No pneumothorax apparent. CARDIOVASCULAR: Normal. OSSEOUS STRUCTURES: No significant abnormalities. VISUALIZED UPPER ABDOMEN: Normal. OTHER FINDINGS: None. IMPRESSION: No interval acute cardiopulmonary disease appreciated.
[2018-02-23 17:55] VITALS: PULSE 76
[2018-02-23 18:38] VITALS: BP 123/76; RESP 19; TEMP 97
[2018-02-24 11:32] VITALS: O2SAT 100
--- NOTE | 2018-02-25 12:20 | CARD ---
APPROVED REPORT EKG Measurement Heart [id number] <Conclusion> Normal sinus rhythm Normal ECG
== END 2018-02-23 18:39 | disposition home or self-care (01) ==
LOC: H.ER 14:23
DX: E87.6 Hypokalemia (principal); R55 Syncope and collapse; R42 Dizziness and giddiness; D64.9 Anemia, unspecified
CPT/HCPCS: 71046; 80053; 80324; 80345; 80346; 80349; 80353; 80358; 80361; 81025; 83992; 85025; 96374; 99285; J2765; J7030

== ENCOUNTER 2018-12-16 22:49 | Emergency (ER) | payer OTHER, SELFPAY ==
[2018-12-16 22:49] VITALS: BMI 19.7
[2018-12-16 23:00] VITALS: O2SAT 100
[2018-12-17] MEDS ORDERED: Sodium Chloride 0.9% 1,000 ML IV STA (00:30)
--- NOTE | 2018-12-17 00:31 | ED PDOC ---
HPI: Abdomen Time Seen by Provider: 12/17/18 00:15 Chief Complaint (Nursing): Abdominal Pain Chief Complaint (Provider): abdominal pain History Per: Patient History/Exam Limitations: no limitations Onset/Duration Of Symptoms: Days (3) Current Symptoms Are (Timing): Still Present Location Of Pain/Discomfort: LLQ Additional Complaint(s): 38 y/o female presents for evaluation of left lower abdominal pain x 3 days. Patient states as of today pain became more intense, and traveled to the left side. Denies fever, nausea/vomiting, chest pain, shortness of breath, palpitations, changes in bowel movements, urinary symptoms. Past Medical History Reviewed: Historical Data, Nursing Documentation, Vital Signs Vital Signs: Last Vital Signs Temp 99 F 12/16/18 22:58 Pulse 90 12/16/18 22:58 Resp 18 12/16/18 22:58 BP 125/73 12/16/18 22:58 Pulse Ox 100 12/16/18 22:58 - Medical History PMH: Anemia Denies: HIV, Chronic Kidney Disease - Family History Family History: States: Unknown Family Hx - Immunization History Hx Tetanus Toxoid Vaccination: No Hx Influenza Vaccination: No Hx Pneumococcal Vaccination: No - Home Medications Home Medications: Ambulatory Orders Medication Instructions Recorded Levonorgestrel-Ethin Estradiol 1 tab PO DAILY@1900 12/03/17 [Vienva-28 Tablet] Gabapentin [Neurontin] 300 mg PO TID #30 cap 01/12/18 Naproxen [Naprosyn] 500 mg PO Q12 PRN #30 tablet 01/12/18 Omeprazole 40 mg PO DAILY PRN #20 capsule. 01/12/18 Meclizine [Meclizine*] 25 mg PO Q6 PRN #12 tab 02/23/18 - Allergies Allergies/Adverse Reactions: Allergies Allergy/AdvReac Type Severity Reaction Status Date / Time iron AdvReac VOMITING Verified 12/16/18 22:57 Review of Systems ROS Statement: Except As Marked, All Systems Reviewed And Found Negative Gastrointestinal: Positive for: Abdominal Pain Physical Exam - Reviewed Nursing Documentation Reviewed: Yes Vital Signs Reviewed: Yes - Physical Exam Appears: Positive for: Well, Non-toxic, No Acute Distress Head Exam: Positive for: ATRAUMATIC, NORMAL INSPECTION, NORMOCEPHALIC Skin: Positive for: Normal Color Eye Exam: Positive for: Normal appearance ENT: Positive for: Normal ENT Inspection Cardiovascular/Chest: Positive for: Regular Rate, Rhythm Respiratory: Positive for: Normal Breath Sounds Gastrointestinal/Abdominal: Positive for: Bowel Sounds, Soft, Tenderness (suprapubic, LLQ, left flank) Back: Positive for: Normal Inspection. Negative for: L CVA Tenderness, R CVA Tenderness Extremity: Positive for: Normal ROM Neurological/Psych: Positive for: Awake, Alert, Oriented (x3) - Laboratory Results Result Diagrams: 12/17/18 01:01 12/17/18 01:01 - ECG O2 Sat by Pulse Oximetry: 100 - Progress ED Course And Treament: -upreg -udip -cbc -cmp -urinalysis -urine c&s EXAM: US Pelvis, Complete Transvaginal and Transabdominal COMPARISON: None provided. CLINICAL HISTORY: Lt sided pelvic pain TECHNIQUE: Transvaginal and transabdominal pelvic ultrasound (complete) with image documentation. FINDINGS: ENDOMETRIUM: Endometrial stripe measures 0.8 cm. UTERUS/CERVIX: Uterus measures 8.0 x 4.2 x 5.3 cm and appears anteverted. Cervix measures 3.5 cm and appears closed. RIGHT OVARY: Right ovary measures 3.5 x 2.8 x 2.6 cm. Right ovary demonstrates normal Doppler waveforms. LEFT OVARY: Left ovary measures 2.4 x 1.3 x 1.2 cm. Left ovary demonstrates normal Doppler waveforms. FREE FLUID: There is small to moderate fluid in the cul de sac. There is small fluid near both ovaries. IMPRESSION: 1. Normal sonographic appearance of the uterus and ovaries. 2. There is small to moderate fluid in the cul de sac. There is small fluid near both ovaries. Please correlate clinically. On re-eval, patient resting comfortably. Patient educated on findings, discharged with instructions to follow up Ship Pilot Dispatcher within 2-3 days Advised NSAIDs PRN pain Return precautions given Disposition - Clinical Impression Clinical Impression: Pelvic pain - Patient ED Disposition Is Patient to be Admitted: No Counseled Patient/Family Regarding: Studies Performed, Diagnosis, Need For Followup - Disposition Disposition: Routine/Home Disposition Time: 02:45 Condition: IMPROVED Instructions: Acute Pelvic Pain
[2018-12-17 01:04] LABS: BASO % 0.5 % (0.0-2.0); EOS # 0.1 K/uL (0.0-0.7); EOS % 1.7 % (0.0-4.0); LYMPH # 1.7 K/uL (1.0-4.3); LYMPH % 26.6 % (20.0-40.0); MEAN CELL VOLUME 75.4 fl (81.0-99.0); MEAN CORPUSCULAR HEMOGLOBIN 23.8 pg (27.0-31.0); MEAN CORPUSCULAR HGB CONC 31.5 g/dL (33.0-37.0); MEAN PLATELET VOLUME 10.6 fl (7.2-11.7); MONO # 0.7 K/uL (0.0-0.8); MONO % 10.2 % (0.0-10.0); NEUT # 3.9 K/uL (1.8-7.0); NRBC % 0.1 % (0.0-0.0); RBC 4.61 Mil/uL (3.80-5.20); RED CELL DISTRIBUTION WIDTH 17.2 % (11.5-14.5); WHITE BLOOD COUNT 6.5 K/uL (4.8-10.8)
[2018-12-17 01:09] LABS: SQUAMOUS EPITHIAL < 1 /hpf (0-5); URINE BACTERIA FEW (<OCC); URINE BILIRUBIN NEGATIVE (NEGATIVE); URINE BLOOD NEGATIVE (NEGATIVE); URINE CLARITY CLEAR (Clear); URINE COLOR STRAW (YELLOW); URINE GLUCOSE (UA) NEG (NEGATIVE); URINE LEUKOCYTE ESTERASE NEG Leu/uL (Negative); URINE PROTEIN NEGATIVE (NEGATIVE); URINE UROBILINOGEN 0.2-1.0 mg/dL (0.2-1.0)
[2018-12-17 01:19] LABS: ALB/GLOB RATIO 1.3 (1.0-2.1); ALBUMIN 4.5 g/dL (3.5-5.0); ALT/SGPT 27 U/L (9-52); AST/SGOT 28 U/L (14-36); BLOOD UREA NITROGEN 12 mg/dl (7-17); CALCIUM 9.2 mg/dL (8.4-10.2); GFR NON-AFRICAN AMERICAN > 60
[2018-12-17 03:08] VITALS: BP 127/76; PULSE 89; RESP 15; TEMP 98.9
--- NOTE | 2018-12-17 11:47 | US ---
Date of service: 12/17/2018 HISTORY: left pelvic pain COMPARISON: None available. TECHNIQUE: Transvaginal pelvic ultrasound was performed. FINDINGS: UTERUS: Measures 8.0 x 4.2 x 5.3 cm. Anteverted, normal in size and appearance. No fibroid or other mass lesion seen. ENDOMETRIUM: Measures 8.3 mm in diameter. Unremarkable. CERVIX: No cervical abnormality identified. RIGHT OVARY: Measures 3.5 x 2.8 x 2.6 cm. No solid mass. Normal flow. LEFT OVARY: Measures 2.4 x 1.3 x 1.2 cm. No solid mass. Normal flow. FREE FLUID: There is moderate amount of free fluid in the pelvis. OTHER FINDINGS: None. IMPRESSION: Moderate amount of free fluid in the pelvis is more than physiologic and could be related to ossific structure or other pathologies. Clinical follow-up is advised. Normal appearance of the uterus and ovaries. A preliminary report was provided by [facility].
== END 2018-12-17 03:08 | disposition home or self-care (01) ==
LOC: H.ER 22:49
DX: R10.2 Pelvic and perineal pain (principal)
CPT/HCPCS: 76830; 80053; 81003; 81025; 85025; 87086; 99284; J7030

== ENCOUNTER 2019-01-05 17:27 | Emergency (ER) | payer OTHER, SELFPAY ==
[2019-01-05 17:33] VITALS: PULSE 79; TEMP 98.8; O2SAT 100
[2019-01-05 17:34] VITALS: BMI 19.2
[2019-01-05] MEDS ORDERED: Sodium Chloride 0.9% 1,000 ML IV STA (17:46)
--- NOTE | 2019-01-05 18:46 | ED PDOC ---
HPI: Abdomen Time Seen by Provider: 01/05/19 17:39 Chief Complaint (Nursing): GI Problem Chief Complaint (Provider): GI Problem History Per: Patient History/Exam Limitations: no limitations Onset/Duration Of Symptoms: Days Current Symptoms Are (Timing): Still Present Additional Complaint(s): 38 y/o female at 7-8 weeks and a PMHx of (one ectopic and one mi scarriage) presents to the ED for evaluation of inability to tolerate water associated with mild left lower pelvic pain. Patient denies any vaginal bleeding, dizziness and fever. Patient has a history significant for right sided ectopic that required salpingectomy. Patient reports she has not had care yet for this . PMD: Gregory Almeida Abnormal Vaginal Bleeding: No : 3 Para: 0 Miscarriage: 1 Past Medical History Reviewed: Historical Data, Nursing Documentation, Vital Signs Vital Signs: Last Vital Signs Temp 98.8 F 01/05/19 17:32 Pulse 79 01/05/19 17:32 Resp 16 01/05/19 17:32 BP 106/69 01/05/19 17:32 Pulse Ox 100 01/05/19 17:32 - Medical History PMH: Anemia Denies: HIV, Chronic Kidney Disease - Surgical History Other surgeries: ectopic - Family History Family History: States: Unknown Family Hx - Immunization History Hx Tetanus Toxoid Vaccination: No Hx Influenza Vaccination: No Hx Pneumococcal Vaccination: No - Home Medications Home Medications: Ambulatory Orders Medication Instructions Recorded Levonorgestrel-Ethin Estradiol 1 tab PO DAILY@1900 12/03/17 [Vienva-28 Tablet] Gabapentin [Neurontin] 300 mg PO TID #30 cap 01/12/18 Naproxen [Naprosyn] 500 mg PO Q12 PRN #30 tablet 01/12/18 Omeprazole 40 mg PO DAILY PRN #20 capsule. 01/12/18 Meclizine [Meclizine*] 25 mg PO Q6 PRN #12 tab 02/23/18 - Allergies Allergies/Adverse Reactions: Allergies Allergy/AdvReac Type Severity Reaction Status Date / Time iron AdvReac VOMITING Verified 12/16/18 22:57 Review of Systems ROS Statement: Except As Marked, All Systems Reviewed And Found Negative Constitutional: Positive for: Weakness Gastrointestinal: Positive for: Nausea, Vomiting Genitourinary Female: Negative for: Dysuria, Frequency, Hematuria, Vaginal Bleeding Musculoskeletal: Negative for: Back Pain Physical Exam - Reviewed Nursing Documentation Reviewed: Yes Vital Signs Reviewed: Yes - Physical Exam Appears: Positive for: Uncomfortable Head Exam: Positive for: ATRAUMATIC, NORMOCEPHALIC Skin: Positive for: Normal Color, Warm, Dry Eye Exam: Positive for: Normal appearance, EOMI, PERRL ENT: Positive for: Normal ENT Inspection Neck: Positive for: Normal, Painless ROM, Supple Cardiovascular/Chest: Positive for: Regular Rate, Rhythm. Negative for: Murmur Respiratory: Positive for: Normal Breath Sounds. Negative for: Respiratory Distress Gastrointestinal/Abdominal: Positive for: Soft, Tenderness (mild lower abdominal tenderness) Extremity: Positive for: Normal ROM. Negative for: Deformity Neurological/Psych: Positive for: Awake, Alert, Oriented (x3). Negative for: Motor/Sensory Deficits - Laboratory Results Result Diagrams: 01/05/19 18:10 - ECG O2 Sat by Pulse Oximetry: 100 (RA) Pulse Ox Interpretation: Normal Medical Decision Making Medical Decision Making: Time: 1746 A/P: -- IV fluids, anti-medic for hyperemesis -- Rule out ectopic with US. -- Beta-HCG, Quantitative -- CMP -- Magnesium -- ED Urine -- ED Urine Dipstick -- CBC with Differentials -- Sodium Chloride IV 1000 mls/hr -- Reglan 10 mg IVP -- Urinalysis -- US OB Transvaginal Rh + prior visit Hgb moderate anemia endorsed Dr Scott 715pm pending US report and re-eval. ___ _ Scribe Attestation: Documented by Alana Scherer, acting as a scribe Nieves Fonseca III, DO. Provider Scribe Attestation: All medical record entries made by the Scribe were at my direction and personally dictated by me. I have reviewed the chart and agree that the record accurately reflects my personal performance of the history, physical exam, medical decision making, and the department course for this patient. I have also personally directed, reviewed, and agree with the discharge instructions and disposition. Disposition - Disposition Forms: [employer] ([place]i)
[2019-01-05 19:01] LABS: BASO % 0.6 % (0.0-2.0); EOS % 0.3 % (0.0-4.0); HEMOGLOBIN 10.9 g/dL (12.0-16.0); LYMPH # 1.4 K/uL (1.0-4.3); LYMPH % 23.3 % (20.0-40.0); MEAN CELL VOLUME 75.5 fl (81.0-99.0); MEAN CORPUSCULAR HEMOGLOBIN 24.1 pg (27.0-31.0); MEAN PLATELET VOLUME 10.7 fl (7.2-11.7); MONO # 0.7 K/uL (0.0-0.8); MONO % 11.7 % (0.0-10.0); NEUT # 3.7 K/uL (1.8-7.0); NEUT % 64.1 % (50.0-75.0); NRBC % 0.2 % (0.0-0.0); RBC 4.51 Mil/uL (3.80-5.20); RED CELL DISTRIBUTION WIDTH 16.3 % (11.5-14.5); WHITE BLOOD COUNT 5.8 K/uL (4.8-10.8)
[2019-01-05] MEDS ORDERED: Lactated Ringer's 1,000 ML IV SCH (19:15)
[2019-01-05 19:44] LABS: BLOOD UREA NITROGEN 9 mg/dl (7-17); GFR NON-AFRICAN AMERICAN > 60
[2019-01-05 19:45] LABS: ALBUMIN 4.3 g/dL (3.5-5.0); CALCIUM 9.2 mg/dL (8.4-10.2)
[2019-01-05 19:46] LABS: ALB/GLOB RATIO 1.4 (1.0-2.1); ALT/SGPT 23 U/L (9-52); AST/SGOT 20 U/L (14-36)
--- NOTE | 2019-01-05 21:28 | ED PDOC ---
- Laboratory Results Result Diagrams: 01/05/19 18:10 01/05/19 18:10 Lab Results: Total Bilirubin 0.7 mg/dl (0.2-1.3) 01/05/19 18:10 AST 20 U/L (14-36) 01/05/19 18:10 ALT 23 U/L (9-52) 01/05/19 18:10 Alkaline Phosphatase 49 U/L (38-126) 01/05/19 18:10 Total Protein 7.5 G/DL (6.3-8.2) 01/05/19 18:10 Albumin 4.3 g/dL (3.5-5.0) 01/05/19 18:10 Globulin 3.2 gm/dL (2.2-3.9) 01/05/19 18:10 Albumin/Globulin Ratio 1.4 (1.0-2.1) 01/05/19 18:10 Beta HCG, Quant 830742.00 mIU/mL 01/05/19 18:10 - ECG O2 Sat by Pulse Oximetry: 100 (RA) Pulse Ox Interpretation: Normal - Progress Re-evaluation Time: 22:55 Condition: Re-examined, Improved Medical Decision Making Medical Decision Making: Time: 1899 -- Patient endorsed to me by Dr. Fonseca, pending official US results Time: 1919 EXAM: US Obstetrical, Complete <14 weeks CLINICAL HISTORY: Pain TECHNIQUE: Transvaginal and transabdominal imaging of the maternal pelvis and a <14 week gestation with image documentation. COMPARISON: None provided. FINDINGS: GESTATION: There is a single live intrauterine gestation. cardiac activity is identified as 148 bpm. [place]-rump length is 0.9 cm corresponding to 6 weeks and 6 days. Gestational sac diameter is 2.2 cm corresponding to 6 weeks and 6 days. UTERUS: Unremarkable. No myometrial mass. CERVIX: Closed. Unremarkable. OVARIES: Unremarkable. No mass. FREE FLUID: No free fluid. IMPRESSION: Single live intrauterine gestation of approximately 6 weeks and 6 days. cardiac activity identified. Close clinical correlation is advised. Electronically signed on Jan 05, 2019 7:20:41 PM EDT by: John Fonseca M.D., Certified by [facility], Diagnostic Radiology Disposition Doctor Will See Patient In The: Office Counseled Patient/Family Regarding: Studies Performed, Diagnosis, Need For Followup - Clinical Impression Clinical Impression: Vomiting affecting - POA Present On Arrival: None - Disposition [facility] Disposition: Routine/Home Disposition Time: 22:56 Condition: IMPROVED Additional Instructions: JOSÉ MIGUEL RICHTER, thank you for letting us take care of you today. Your provider was Christine Scott MD and you were treated for 8 WKS/ VOMITING. The emergency medical care you received today was directed at your acute symptoms. If you were prescribed any medication, please fill it and take as directed. It may take several days for your symptoms to resolve. Return to the Emergency Department if your symptoms worsen, do not improve, or if you have any other problems. Please contact your doctor or call one of the physicians/clinics you have been referred to that are listed on the Patient Visit Information form that is included in your discharge packet. Bring any paperwork you were given at discharge with you along with any medications you are taking to your follow up visit. Our treatment cannot replace ongoing medical care by a primary care provider outside of the emergency department. Thank you for allowing the [facility] team to be part of your care today. If you had an X-Ray or CT scan: A Radiologist will review the ED reading if any change in treatment is needed we will contact you. If you had a blood, urine, or wound culture: It will take several days for the results, if any change in treatment is needed we will contact you. Prescriptions: Ondansetron ODT [Zofran ODT] 4 mg PO Q8 PRN #12 odt PRN Reason: Nausea/Vomiting Instructions: Nausea and Vomiting of (DC) Forms: [employer] (Amharic)
[2019-01-05 23:42] VITALS: BP 102/65; RESP 18
[2019-01-06 00:26] LABS: SQUAMOUS EPITHIAL 1 /hpf (0-5); URINE BACTERIA RARE (<OCC); URINE BILIRUBIN NEGATIVE (NEGATIVE); URINE BLOOD NEGATIVE (NEGATIVE); URINE CLARITY SLIGHTY-CLOUDY (Clear); URINE COLOR YELLOW (YELLOW); URINE GLUCOSE (UA) NEG (NEGATIVE); URINE LEUKOCYTE ESTERASE NEG Leu/uL (Negative); URINE PROTEIN NEGATIVE (NEGATIVE); URINE UROBILINOGEN 0.2-1.0 mg/dL (0.2-1.0)
--- NOTE | 2019-01-06 10:06 | US ---
Date of service: 01/05/2019 PROCEDURE: ultrasound. HISTORY: approx 7 wks, mild pelvic pain hx ectopic prior COMPARISON: 12/17/2018. TECHNIQUE: Standard protocol for this study/examination. FINDINGS: LMP: 11/16/2018. Prior examinations from the current : 12/17/2018. TECHNIQUE: Real-time 2D imaging, duplex and color Doppler. FINDINGS: Cardiac activity: Present Rate: 148 BPM Measurements: [place] rump length: 0.90 cm Gestational age based on CRL 6 weeks 6 days Gestational age 6 weeks 6 days based on gestational sac measurement 2.21 cm Gestational age derived from LMP: 7 weeks 1 day SUZANNE based on LMP: 08/23/2019 SUZANNE based on biometry: 08/25/2019 Gestational concordance noted Yolk sac identified Cervix: No Cervical abnormalities: Negative examination for cervical dilatation or effacement. Closed cervix measuring 4.3 cm Subchorionic hemorrhage: None UTERUS: 5.6 x 6.3 x 8.6 cm. ADNEXA: Right: 1.2 x 1.4 x 1.9 cm. Normal Doppler arterial waveform documented. Left: 1.3 x 2.7 x 2.1 cm. Normal Doppler arterial waveform documented Fluid in the cul-de-sac: None IMPRESSION: Six weeks 6 days live intrauterine gestation. Gestational concordance documented. Concordant findings (preliminary report) provided by [facility] [employer].
== END 2019-01-05 23:45 | disposition home or self-care (01) ==
LOC: H.ER 17:27
DX: O21.9 Vomiting of pregnancy, unspecified (principal); O26.891 Other specified pregnancy related conditions, first trimester
CPT/HCPCS: 76817; 80053; 81003; 81025; 83735; 84702; 85025; 96361; 96374; 99284; J2765; J7030; J7120

== ENCOUNTER 2019-01-21 22:27 | Emergency (ER) | payer SELFPAY ==
[2019-01-21 22:27] VITALS: BMI 19.2
[2019-01-22 00:07] VITALS: BP 113/57; PULSE 89; RESP 16; TEMP 98.9; O2SAT 100
--- NOTE | 2019-01-22 04:09 | ED PDOC ---
- ECG O2 Sat by Pulse Oximetry: 100 - Progress ED Course And Treament: Case endorsed to contract technical writer from Sekou Arredondo PA-C pending labs, re-eval Patient sleeping on re-eval; upon awakening states nausea improved and tolerated water Labs show no significant abnormality Patient educated on findings, discharged with rx Diclegis Advised to increase fluid intake. [place] diet Follow up Home Care Physical Therapist (patient has appointment tomorrow) Return precautions given Disposition - Clinical Impression Clinical Impression: Hyperemesis gravidarum - POA Present On Arrival: None - Disposition Disposition: Routine/Home Disposition Time: 03:45 Condition: IMPROVED Instructions: Hyperemesis Gravidarum
[2019-01-22 04:32] LABS: BASO % 0.2 % (0.0-2.0); EOS % 0.2 % (0.0-4.0); LYMPH # 0.9 K/uL (1.0-4.3); LYMPH % 12.4 % (20.0-40.0); MEAN CELL VOLUME 76.4 fl (81.0-99.0); MEAN CORPUSCULAR HEMOGLOBIN 24.2 pg (27.0-31.0); MEAN CORPUSCULAR HGB CONC 31.6 g/dL (33.0-37.0); MEAN PLATELET VOLUME 11.6 fl (7.2-11.7); MONO # 0.4 K/uL (0.0-0.8); NEUT # 5.7 K/uL (1.8-7.0); NEUT % 81.2 % (50.0-75.0); NRBC % 0.1 % (0.0-0.0); RBC 4.97 Mil/uL (3.80-5.20)
[2019-01-22 04:42] LABS: BLOOD UREA NITROGEN 9 mg/dl (7-17); CALCIUM 9.4 mg/dL (8.4-10.2); GFR NON-AFRICAN AMERICAN > 60
[2019-01-22 04:43] LABS: ALB/GLOB RATIO 1.4 (1.0-2.1); ALBUMIN 4.6 g/dL (3.5-5.0); ALT/SGPT 18 U/L (9-52); AST/SGOT 21 U/L (14-36)
== END 2019-01-22 05:30 | disposition home or self-care (01) ==
LOC: H.ER 22:27
DX: O21.0 Mild hyperemesis gravidarum (principal)

== ENCOUNTER 2019-02-10 13:37 | Emergency (ER) | payer SELFPAY ==
[2019-02-10 14:16] VITALS: BMI 18.6
[2019-02-10 14:18] VITALS: BP 103/63; PULSE 73; RESP 18; TEMP 98.5; O2SAT 100
[2019-02-10 15:14] LABS: BASO % 0.2 % (0.0-2.0); EOS % 0.5 % (0.0-4.0); HEMOGLOBIN 11.5 g/dL (12.0-16.0); LYMPH % 14.8 % (20.0-40.0); MEAN CELL VOLUME 76.5 fl (81.0-99.0); MEAN CORPUSCULAR HEMOGLOBIN 24.6 pg (27.0-31.0); MEAN CORPUSCULAR HGB CONC 32.1 g/dL (33.0-37.0); MEAN PLATELET VOLUME 10.5 fl (7.2-11.7); MONO # 0.6 K/uL (0.0-0.8); MONO % 9.2 % (0.0-10.0); NEUT # 5.2 K/uL (1.8-7.0); NEUT % 75.3 % (50.0-75.0); NRBC % 0.1 % (0.0-0.0); RBC 4.67 Mil/uL (3.80-5.20); RED CELL DISTRIBUTION WIDTH 16.9 % (11.5-14.5); WHITE BLOOD COUNT 6.9 K/uL (4.8-10.8)
--- NOTE | 2019-02-10 15:26 | ED PDOC ---
HPI: Female Pain Time Seen by Provider: 02/10/19 14:31 Chief Complaint (Nursing): Female Genitourinary Chief Complaint (Provider): Female Genitourinary History Per: Patient History/Exam Limitations: no limitations Onset/Duration Of Symptoms: Days Current Symptoms Are (Timing): Still Present Additional Complaint(s): 38 y/o female who is and is currently 12 weeks presents to the ED for evaluation of vomiting associated with abdominal pain, onset yesterday. Patient reports of taking Zofran with no relief of vomiting. Patient denies vaginal bleeding. Of note, patient reports her first was an ectopic requiring surgical removal of her right fallopian tube and her second resulted in a miscarriage. PMD: Netta Sanchez Abnormal Vaginal Bleeding: No : 3 Miscarriage: 1 Past Medical History Reviewed: Historical Data, Nursing Documentation, Vital Signs Vital Signs: Last Vital Signs Temp 98.5 F 02/10/19 14:16 Pulse 73 02/10/19 14:16 Resp 18 02/10/19 14:16 BP 103/63 02/10/19 14:16 Pulse Ox 100 02/10/19 14:16 Primary Care Provider: Netta Sanchez - Medical History PMH: Anemia Denies: HIV, Chronic Kidney Disease - Surgical History Other surgeries: SURGICAL REMOVAL OF RIGHT FALLOPIAN TUBE - Family History Family History: States: Unknown Family Hx - Immunization History Hx Tetanus Toxoid Vaccination: No Hx Influenza Vaccination: No Hx Pneumococcal Vaccination: No - Home Medications Home Medications: Ambulatory Orders Medication Instructions Recorded Levonorgestrel-Ethin Estradiol 1 tab PO DAILY@1900 12/03/17 [Vienva-28 Tablet] Gabapentin [Neurontin] 300 mg PO TID #30 cap 01/12/18 Naproxen [Naprosyn] 500 mg PO Q12 PRN #30 tablet 01/12/18 Omeprazole 40 mg PO DAILY PRN #20 capsule. 01/12/18 Meclizine [Meclizine*] 25 mg PO Q6 PRN #12 tab 02/23/18 Ondansetron ODT [Zofran ODT] 4 mg PO Q8 PRN #12 odt 01/05/19 Ondansetron ODT [Zofran ODT] 4 mg PO Q8 PRN #12 odt 01/05/19 - Allergies Allergies/Adverse Reactions: Allergies Allergy/AdvReac Type Severity Reaction Status Date / Time iron AdvReac VOMITING Verified 01/22/19 00:03 Review of Systems ROS Statement: Except As Marked, All Systems Reviewed And Found Negative Gastrointestinal: Positive for: Vomiting, Abdominal Pain Genitourinary Female: Negative for: Vaginal Bleeding Physical Exam - Reviewed Nursing Documentation Reviewed: Yes Vital Signs Reviewed: Yes - Physical Exam Appears: Positive for: Uncomfortable Head Exam: Positive for: ATRAUMATIC, NORMOCEPHALIC Skin: Positive for: Normal Color, Warm, Dry Eye Exam: Positive for: Normal appearance, EOMI, PERRL Neck: Positive for: Normal, Painless ROM, Supple Cardiovascular/Chest: Positive for: Regular Rate, Rhythm. Negative for: Murmur Respiratory: Positive for: Normal Breath Sounds. Negative for: Respiratory Distress Gastrointestinal/Abdominal: Positive for: Tenderness (SUPRPUBIC TENDERNESS) Extremity: Positive for: Normal ROM. Negative for: Deformity Neurological/Psych: Positive for: Awake, Alert, Oriented (x3). Negative for: Motor/Sensory Deficits - ECG O2 Sat by Pulse Oximetry: 100 (RA) Pulse Ox Interpretation: Normal Medical Decision Making Medical Decision Making: Time: 1459 Impression: Abdominal Pain in setting of Plan: -- CMP -- ED Urine Dipstick -- Dextrose 5%-0.9% NS IV 1000 mls/hr -- Reglan 10 mg IVP -- Urinalysis -- US OB , Limited Scribe Attestation: Documented by Alana Scherer, acting as a scribe for Marielos Arias MD. Provider Scribe Attestation: All medical record entries made by the Scribe were at my direction and personally dictated by me. I have reviewed the chart and agree that the record accurately reflects my personal performance of the history, physical exam, medical decision making, and the department course for this patient. I have also personally directed, reviewed, and agree with the discharge instructions and disposition. Disposition - Disposition
[2019-02-10 15:30] LABS: SQUAMOUS EPITHIAL 1 /hpf (0-5); URINE BACTERIA RARE (<OCC); URINE BILIRUBIN NEGATIVE (NEGATIVE); URINE BLOOD NEGATIVE (NEGATIVE); URINE CLARITY SLIGHTY-CLOUDY (Clear); URINE COLOR YELLOW (YELLOW); URINE GLUCOSE (UA) NEG (NEGATIVE); URINE LEUKOCYTE ESTERASE NEG Leu/uL (Negative); URINE PROTEIN 30 mg/dL (NEGATIVE); URINE UROBILINOGEN 0.2-1.0 mg/dL (0.2-1.0)
[2019-02-10 16:28] LABS: ALB/GLOB RATIO 1.4 (1.0-2.1); ALBUMIN 4.2 g/dL (3.5-5.0); ALT/SGPT 17 U/L (9-52); AST/SGOT 23 U/L (14-36); BLOOD UREA NITROGEN 7 mg/dl (7-17); CALCIUM 9.3 mg/dL (8.4-10.2); GFR NON-AFRICAN AMERICAN > 60
--- NOTE | 2019-02-10 17:36 | ED PDOC ---
- Laboratory Results Result Diagrams: 02/10/19 13:28 02/10/19 13:28 Lab Results: Total Bilirubin 0.9 mg/dl (0.2-1.3) 02/10/19 13:28 AST 23 U/L (14-36) 02/10/19 13:28 ALT 17 U/L (9-52) 02/10/19 13:28 Alkaline Phosphatase 38 U/L (38-126) 02/10/19 13:28 Total Protein 7.3 G/DL (6.3-8.2) 02/10/19 13:28 Albumin 4.2 g/dL (3.5-5.0) 02/10/19 13:28 Globulin 3.1 gm/dL (2.2-3.9) 02/10/19 13:28 Albumin/Globulin Ratio 1.4 (1.0-2.1) 02/10/19 13:28 Urine Color Yellow (YELLOW) 02/10/19 13:28 Urine Clarity Slighty-cloudy (Clear) 02/10/19 13:28 Urine pH 8.0 (5.0-8.0) 02/10/19 13:28 Ur Specific [place] 1.016 (1.003-1.030) 02/10/19 13:28 Urine Protein 30 mg/dL (NEGATIVE) 02/10/19 13:28 Urine Glucose (UA) Neg mg/dL (NEGATIVE) 02/10/19 13:28 Urine Ketones 80 mg/dL (NEGATIVE) 02/10/19 13:28 Urine Blood Negative (NEGATIVE) 02/10/19 13:28 Urine Nitrate Negative (NEGATIVE) 02/10/19 13:28 Urine Bilirubin Negative (NEGATIVE) 02/10/19 13:28 Urine Urobilinogen 0.2-1.0 mg/dL (0.2-1.0) 02/10/19 13:28 Ur Leukocyte Esterase Neg Simi/uL (Negative) 02/10/19 13:28 Urine RBC (Auto) 1 /hpf (0-3) 02/10/19 13:28 Urine Microscopic WBC < 1 /hpf (0-5) 02/10/19 13:28 Ur Squamous Epith Cells 1 /hpf (0-5) 02/10/19 13:28 Urine Bacteria Rare (<OCC) 02/10/19 13:28 - ECG O2 Sat by Pulse Oximetry: 100 (RA) Pulse Ox Interpretation: Normal Medical Decision Making Medical Decision Making: Time: 1700 -- Patient endorsed to me by Dr. Arias, pending US, re-assessment and final ER disposition Accession No. : [id number] Patient Name / ID : ROBER VALDEZ / [id number] Exam Date : 02/10/2019 16:58:48 ( Approved ) Study Comment : Sex / Age : F / 38Y Creator : ishan walsh Dictator : Fidel Degroot MD Fly Winder : [employer] Operator : Fidel Degroot MD Approver2 : Report Date : 02/10/2019 17:26:56 My Comment : Date of service: 02/10/2019 PROCEDURE: OB Pelvic Ultrasound HISTORY: Lower abd pain, vomiting, 12 weeks gestation LMP: 11/16/2018 COMPARISON: Obstetric ultrasound 01/05/2019. Transvaginal pelvic ultrasound 12/17/2018. FINDINGS: UTERUS: Gestational sac: Single intrauterine gestation. Heart rate: 171 bpm. age (Ultrasound estimated): 12 weeks 2 days based on mean crown-rump length measurement of 5.82 cm. Normal interval growth identified. Corie-gestational hemorrhage: None. Date of delivery (Ultrasound estimated) : 08/23/2019. Uterus measures 15.2 x 11.0 x 7.4 cm. Uterus is increased in size as expected, however, there is a hypoechoic lesion identified which is avascular at the mid body anteriorly, measuring 3.3 x 1.9 x 2.7 cm. This is an interval finding with subtle posterior acoustic shadowing. This may represent enlargement of a previously not seen fibroid or other myometrial lesion. It does not appear to be a cyst. There is also not felt to reflect chronic hematoma, though this is possible. CERVIX: Measures 3.4 cm. Long and closed. No cervical abnormality seen. RIGHT OVARY: Not identified. No suspicious adnexal mass or fluid collection appreciable. LEFT OVARY: Not identified. No suspicious adnexal mass or fluid collection appreciable. FREE FLUID: None. OTHER FINDINGS: None. IMPRESSION: A single, viable intrauterine gestation is identified with average ultrasonic age of 12 weeks 2 days representing normal interval growth compared to 12/17/2018 prior obstetric ultrasound. cardiac activity registered is 171 beats per minute. An interval mid uterine body hypoechoic well-circumscribed lesion is appreciated suspicious for an enlarging fibroid poorly demonstrated though chronic hematoma is not excluded. Other soft tissue lesion is not completely excluded. Clinical correlation is advised with sonographic follow-up. Time: 1844 -- Discussed with patient findings. On re-evaluation, patient reports of improvement in symptoms. Patient is tolerating PO fluids in the ER. At this time, patient is eager to go home. Patient is stable for discharge home. Scribe Attestation: Documented by Alana Scherer, acting as a scribe for Katherin Cortes MD. Provider Scribe Attestation: All medical record entries made by the Scribe were at my direction and personally dictated by me. I have reviewed the chart and agree that the record accurately reflects my personal performance of the history, physical exam, medical decision making, and the department course for this patient. I have also personally directed, reviewed, and agree with the discharge instructions and disposition. Disposition Counseled Patient/Family Regarding: Studies Performed, Diagnosis, Need For Followup, Rx Given - Clinical Impression Clinical Impression: Hyperemesis gravidarum, Gastroesophageal reflux in - POA Present On Arrival: None - Disposition Disposition: Routine/Home Disposition Time: 18:45 Prescriptions: Famotidine [Pepcid] 40 mg PO DAILY PRN #30 tab PRN Reason: reflux Instructions: Hyperemesis Gravidarum, Acid Reflux (Gastroesophageal Reflux Disease) During Forms: [facility] ED School/Work Excuse
--- NOTE | 2019-02-10 18:19 | US ---
Date of service: 02/10/2019 PROCEDURE: OB Pelvic Ultrasound HISTORY: Lower abd pain, vomiting, 12 weeks gestation LMP: 11/16/2018 COMPARISON: Obstetric ultrasound 01/05/2019. Transvaginal pelvic ultrasound 12/17/2018. FINDINGS: UTERUS: Gestational sac: Single intrauterine gestation. Heart rate: 171 bpm. age (Ultrasound estimated): 12 weeks 2 days based on mean crown-rump length measurement of 5.82 cm. Normal interval growth identified. Corie-gestational hemorrhage: None. Date of delivery (Ultrasound estimated) : 08/23/2019. Uterus measures 15.2 x 11.0 x 7.4 cm. Uterus is increased in size as expected, however, there is a hypoechoic lesion identified which is avascular at the mid body anteriorly, measuring 3.3 x 1.9 x 2.7 cm. This is an interval finding with subtle posterior acoustic shadowing. This may represent enlargement of a previously not seen fibroid or other myometrial lesion. It does not appear to be a cyst. There is also not felt to reflect chronic hematoma, though this is possible. CERVIX: Measures 3.4 cm. Long and closed. No cervical abnormality seen. RIGHT OVARY: Not identified. No suspicious adnexal mass or fluid collection appreciable. LEFT OVARY: Not identified. No suspicious adnexal mass or fluid collection appreciable. FREE FLUID: None. OTHER FINDINGS: None. IMPRESSION: A single, viable intrauterine gestation is identified with average ultrasonic age of 12 weeks 2 days representing normal interval growth compared to 12/17/2018 prior obstetric ultrasound. cardiac activity registered is 171 beats per minute. An interval mid uterine body hypoechoic well-circumscribed lesion is appreciated suspicious for an enlarging fibroid poorly demonstrated though chronic hematoma is not excluded. Other soft tissue lesion is not completely excluded. Clinical correlation is advised with sonographic follow-up.
== END 2019-02-10 19:04 | disposition home or self-care (01) ==
LOC: H.ER 13:37
DX: O21.0 Mild hyperemesis gravidarum (principal); O99.611 Diseases of the digestive system complicating pregnancy, first trimester; K21.9 Gastro-esophageal reflux disease without esophagitis; Z3A.12 12 weeks gestation of pregnancy
CPT/HCPCS: 76815; 80053; 81003; 81025; 85025; 96374; 99285; J2765; J7042